=== PATIENT | female | born 1960 | race Caucasian/White ===

== ENCOUNTER 2020-06-03 00:38 | Outpatient (CLI) | payer OTHER, SELFPAY ==
[2020-06-03 19:16] LABS: SARS-CoV-2 RNA PCR Negative
== END 2020-06-03 00:39 | disposition home or self-care (01) ==
LOC: ANHCOVIDDT 00:40
PROVIDERS: PCP Family Medicine; Visit Provider Orthopaedic Surgery
DX: Z01.818 Encounter for other preprocedural examination (principal); Z11.59 Encounter for screening for other viral diseases
CPT/HCPCS: 87635; C9803; U0003

== ENCOUNTER 2020-06-03 10:07 | Outpatient (CLI) | payer OTHER, SELFPAY ==
--- NOTE | 2020-06-03 10:42 | ECG_ITS ---
Measurements Intervals [place] Rate: 60 P: 43 OK: 140 QRS: 35 QRSD: 98 T: 50 QT: 410 QTc: 410 Interpretive Statements SINUS RHYTHM NONSPECIFIC T-WAVE ABNORMALITY- ANTERIOR LEADS BASELINE ARTIFACT- I, III, AVL BORDERLINE ECG Electronically Signed On 06-03-2020 11:41:27 CDT by Frank Antonio D.O.
[2020-06-03 10:43] LABS: Blood Urea Nitrogen 18 mg/dL (7-17); Calcium 9.5 mg/dL (8.4-10.2); Carbon Dioxide 27 mmol/L (22-30); Chloride 102 mmol/L (98-107); Estimated Glomerular Filt Rate > 60; Glucose 164 mg/dL (65-105); Potassium 4.1 mmol/L (3.4-5.0); Sodium 138 mmol/L (137-145)
== END 2020-06-03 10:08 | disposition home or self-care (01) ==
PROVIDERS: PCP Family Medicine; Visit Provider Anesthesiology
DX: Z01.818 Encounter for other preprocedural examination (principal); E11.9 Type 2 diabetes mellitus without complications
CPT/HCPCS: 36415; 80048; 93005

== ENCOUNTER 2020-06-04 02:27 | Day surgery (SDC) | payer OTHER, SELFPAY ==
[2020-06-02 17:01] VITALS: BMI 32.0
[2020-06-04] VITALS (10 sets, daily range): BP systolic 126–142; BP diastolic 61–93; PULSE 55–73; RESP 10–20; TEMP 36.1–36.3; O2SAT 94–100
--- NOTE | ~2020-06-04 | XR_ITS ---
EXAMINATION: XR surgery orthopedic DATE: 06/04/2020 10:35 INDICATION: ORIF left wrist fracture TECHNIQUE: 6 fluoroscopic spot images of the left wrist were obtained during procedure performed by Luca Dunham. Radiologist was not present for the imaging or procedure. The amount of fluoroscopy ti me used during this procedure was 1.3 minutes. COMPARISON: None. FINDINGS: Images demonstrate open reduction and internal fixation with volar plate and screw fixation of a comm inuted intra-articular fracture of the distal left radius. Alignment appears near-anatomic with 4 deg trevor volar tilt and no significant fracture gap or incongruity of the distal articular surface. Ulnar styloid avulsion fracture which remains unfixed with mild distal/ulnar displacement and radial angul ation. Normal alignment and the carpus with mild osteoarthritis at the triscaphe and first carpal met acarpal joints. IMPRESSION: 1. Near-anatomic alignment post ORIF of a comminuted intra-articular distal left radial fracture. 2. Mild displacement and angulation of the ulnar styloid avulsion fracture which remains unfixed. Reviewed, dictated and finalized at location A. IMPRESSION: 1. Near-anatomic alignment post ORIF of a comminuted intra-articular distal lef t radial fracture. 2. Mild displacement and angulation of the ulnar styloid avulsion fracture whic h remains unfixed.
[2020-06-04] MEDS: LACTATED RINGERS 1,000 ML 30 ML IV CONT ×2 (07:43→10:38)
[2020-06-04 07:49] LABS: Glucose Point of Care 137 (65-105)
--- NOTE | 2020-06-04 08:02 | WPDANESEPPF ---
Anes - Initial Pre Proc Eval Procedure: Operation Date: 06/04/20 09:00 Proposed Procedures p Open Reduction Internal Fixation Left Distal Radius - Eddie Dunham MD Date/Time: 06/04/20 08:02 Surgeon: Eddie Dunham MD Pre Op Diagnosis: left distal radius fx Patient Data Age: 60 Gender: F Height: 5 ft 3 in Weight: 82.9 kg Last Vital Signs Temp 36.3 C L 06/04/20 07:55 Pulse 55 L 06/04/20 07:55 BP 139/75 06/04/20 07:55 Pulse Ox 96 06/04/20 07:55 Allergies Allergy/AdvReac Type Severity Reaction Status Date / Time No Known Allergies Allergy Verified 06/03/20 08:54 Home Medications Medication Instructions Recorded Confirmed Type cholecalciferol (vitamin D3) 125 5,000 unit PO DAILY 10/26/19 06/02/20 History mcg (5,000 unit) tablet meloxicam 15 mg tablet 15 mg PO DAILY 10/26/19 06/02/20 History gabapentin 300 mg capsule 300 mg PO BID 10/29/19 06/04/20 History atorvastatin 10 mg tablet 10 mg PO DAILY #90 tablet 04/30/20 06/02/20 Rx clonazepam 1 mg PO DAILY 06/02/20 06/02/20 History hydrocodone 5 mg-acetaminophen 325 1 tablet PO Q6H PRN #20 tablet 06/02/20 06/04/20 Rx mg tablet metformin [Glucophage XR] 1,000 mg PO BID 06/02/20 06/02/20 History trazodone 100 mg PO HS 06/02/20 06/02/20 History Laboratory Tests 06/04/20 07:46 POC Capillary Glucose 137 mg/dl H mg/dl (65-105) Patient hx anesthesia problems: post op nausea/vomiting Family hx anesthesia problems: none PMFSH Past Medical History Medical History (Updated 06/04/20 @ 08:03 by Aubrey Bruce MD) Cervical vertebral fusion Depression Dermatofibroma Diverticulosis of small intestine Eczema Hypertension Internal hemorrhoids with other complication CRISTEL (obstructive sleep apnea) Rectocele Transient ischemic attack Varicella (~1974) Surgical History Surgical History History of appendectomy History of tubal ligation (~1992) Hx of cholecystectomy (~2001) Status post cervical spinal fusion Social History Social History Smoking status: Never smoker Alcohol intake: current Living arrangements: with family Spiritual care concerns: No Anes - Eval Final PreProcedure Day of Procedure 06/04/20 08:02 Patient weight: obese Heart: regular rate and rhythm Lungs: clear to auscultation Airway: Mallampati scale class II Neurological: alert and oriented Last oral intake: >/= 8 hours ASA classification: III Emergent: no Anesthetic plan: proceed Anesthesia type and monitoring: general LMA and standard monitoring Informed Consent: The patient's anesthetic plan and its attendant risks and benefits were discussed with the patient/family/POA. Questions were solicited and answers provided to the satisfaction of the patient/family/POA.
[2020-06-04] MEDS: SCOPOLAMINE 1.5 MG PATCH TRANSDERM (08:08)
--- NOTE | 2020-06-04 08:37 | WPDHPUPDATE1 ---
History and Physical Update Update Date/Time: 06/04/20 08:37 History and Physical has been reviewed, including an updated exam of the patient. There are NO changes in the patient's condition. Risks, benefits, and alternatives have been discussed and questions answered. Patient agrees to proceed with procedure.
[2020-06-04] MEDS: ceFAZolin 2 GM/D5W 50 ML 2 GM/50 ML BAG IVPB (08:52)
[2020-06-04] MEDS: BUPIVACAINE/EPINEPHRINE 0.5% 30 ML VIAL INFILTRATE (09:23)
--- NOTE | 2020-06-04 11:00 | PM.PROC ---
Procedure Note - Detailed Date of procedure: 06/04/20 Pre-op diagnosis: left distal radius fx Post-op diagnosis: same Procedure performed: ORIF distal radius fracture with volar plate. Description of procedure: Comminuted fracture with an intra-articular fracture line and significant metaphyseal comminution. The slightly longer plate was utilized. Fixation of two intraarticular fragments. (23804) Implants: [employer] volar plate, narrow, long. Anesthesia: GETA Surgeon: Eddie Dunham MD Estimated blood loss (mL): 20 Tourniquet time (min): 67 Complications: No immediate complications Condition: stable Disposition: PACU Findings: Operative details: Preoperative antibiotics were given. A general anesthetic was administered. The hand was prepped and draped in the usual sterile fashion with a well-padded tourniquet. The limb was exsanguinated and the tourniquet inflated to 250 millimeters of mercury. A longitudinal incision was created over the flexor carpi radialis tendon. Dissection was brought down through the sheath. The pronator quadratus was identified and released off of the radius. The fracture was carefully exposed and cleared of debris. Reduction was obtained with traction and manipulation. There was significant comminution in the metaphyseal area. A large radial fragment was reduced anatomically. There was a fracture line into the joint which was stabilized with a pin. Fluoroscopy was used to confirm anatomic reduction. The volar plate was placed on the radius and the position was confirmed. Provisional pins were placed Through the radial styloid. The 1st pin controlled the articular reduction. The 2nd pin went across into the metaphysis.. The dynamic cortical screw was applied. The plate was fine tuned and fluoroscopy was use to confirm that the joint would not be violated. Subsequent distal pins and screws were placed, followed by the proximal row. The wound was irrigated and closed. 2-0 Vicryl suture was used to reapproximate the pronator quadratus. The tourniquet was released and meticulous hemostasis was confirmed. The skin was closed with 3-0 Monocryl suture and a running 4-0 Monocryl suture. Steri-Strips were applied on the skin. A sterile bulky dressing with a volar splint was applied.
[2020-06-04 11:04] LABS: Glucose Point of Care 127 (65-105)
== END 2020-06-04 13:15 | disposition home or self-care (01) ==
PROVIDERS: PCP Family Medicine; Visit Provider Orthopaedic Surgery
PROC: (CPT 25575; principal; 2020-06-04 09:00)
DX: S52.572A Other intraarticular fracture of lower end of left radius, initial encounter for closed fracture (principal); W18.39XA Other fall on same level, initial encounter; I10 Essential (primary) hypertension; G47.33 Obstructive sleep apnea (adult) (pediatric); F32.9 Major depressive disorder, single episode, unspecified; Z86.73 Personal history of transient ischemic attack (TIA), and cerebral infarction without residual deficits; Z79.84 Long term (current) use of oral hypoglycemic drugs; Z98.1 Arthrodesis status; E66.9 Obesity, unspecified; Z68.32 Body mass index [BMI] 32.0-32.9, adult
CPT/HCPCS: 25608; 36415; 80048; 87635; 93005; A9270; C9803; J0690; J1100; J2250; J2405; J2704; J3010; J7120; U0003

== ENCOUNTER 2020-07-02 09:07 | Outpatient (CLI) | payer OTHER, SELFPAY ==
--- NOTE | ~2020-07-02 | MM_ITS ---
EXAMINATION: MM screening [facility] BI w mike HISTORY: Screening TECHNIQUE: Craniocaudal and mediolateral oblique 3-D tomosynthesis images were obtained and synthetic 2-D images were generated. CAD analysis was submitted and interpreted. COMPARISON: Comparison to multiple prior studies sequentially, with oldest reviewed study dated 10/28. BREAST PARENCHYMAL COMPOSITION: There are scattered areas of fibroglandular density. FINDINGS: There is no evidence of suspicious mass, calcification, or architectural distortion to sugg est malignancy in either breast. There has been no suspicious interval change. IMPRESSION: 1. No mammographic evidence of malignancy. 2. Recommend routine screening mammography in one year. BI-RADS Category 1: Negative2 Reviewed, dictated and finalized at location A.
--- NOTE | ~2020-07-02 | US_ITS ---
EXAMINATION: US thyroid DATE: 07/02/2020 10:56 INDICATION: Nontoxic single thyroid nodule TECHNIQUE: Multiple ultrasound images of the thyroid were obtained. COMPARISON: None. FINDINGS: The right thyroid lobe measures 4.3 x 1.2 x 1.1 cm. The left thyroid lobe measures 4.4 x 1.3 x 1.4 c m. There are couple small hypoechoic wider than tall nodules with smooth margins and without echogen ic foci in the right thyroid measuring 4 mm and 2-3 mm in maximal dimensions (TI-RADS 4, moderately s uspicious , FNA if >=1.5 cm, annual followup is >1 cm). There are several small lesions in the left t hyroid the largest 3 measuring between 2.5-5 mm in maximal diameter appear anechoic cystic with perip heral echogenic foci consistent with inspissated colloid in colloid cysts. There are couple additiona l tiny hypoechoic lesions which are indeterminate whether solid versus cystic. There is mildly hetero geneous echogenicity and mildly coarsened echotexture throughout the thyroid. IMPRESSION: 1. Multinodular goiter with multiple subcentimeter nodules none meeting consensus criteria for biopsy or follow-up. Reviewed, dictated and finalized at location A. IMPRESSION: 1. Multinodular goiter with multiple subcentimeter nodules none meeting consens us criteria for biopsy or follow-up.
== END 2020-07-02 09:08 | disposition home or self-care (01) ==
PROVIDERS: PCP Family Medicine; Visit Provider Family Medicine
DX: Z12.31 Encounter for screening mammogram for malignant neoplasm of breast (principal); E04.2 Nontoxic multinodular goiter
CPT/HCPCS: 76536; 77063; 77067

== ENCOUNTER 2020-12-15 08:27 | Outpatient (CLI) | payer OTHER, SELFPAY ==
--- NOTE | 2020-12-15 08:33 | EST_ITS ---
Patient Info Name: Spring Bishop Age: 60 years : 1960 Gender: Female Ht: 63 in Wt: 170 lbs BSA: 1.88 m2 Technical Quality: Good Exam Date: 12/15/2020 9:09 AM Exam Location: [facility] Pulmonary Patient Status: Outpatient Admit Date: 12/15/2020 Staff Ordering Physician: Jovanny Higgins MD Housekeeping Aid: Niurka Tatum RDCS Attending Provider: ROSHNI BENITEZ DO Referring Physician: Gisela COMBS; Exercise Technologist: Yi Westbrook RDCS Exercise Physician: Roshni Benitez DO Exam Type: CA stress echo Study Info Indications R06.00 - Dyspnea, unspecified Treadmill exercise stress echocardiogram is performed. Summary 1. 1. Negative Piyush exercise stress test for ischemic ST changes by ECG criteria. 2. 2. Good functional capacity, achieving 10 METs of workload. 3. 3. Appropriate HR response to exercise. 4. 4. Appropriate HR recovery at 1 minute post exercise. 5. 5. Negative stress echocardiogram for ischemia by wall motion analysis. 6. 6. Patient informed of the above results. Stress Echo Findings Left Ventricle Appropriate increase in LV endocardial thickening with systole. Appropriate augmentation of contractility with systole. No obvious wall motion abnormality. Left Ventricle Normal LV systolic function, no wall motion abnormality. Protocol: Piyush Stress ECG Details Stage: REST Duration (min): 11 min : 20 sec Speed (mph): 0.0 Grade (%): 0 HR (bpm): 63 SBP (mmHg): 122 DBP (mmHg): 80 METS: --- Stage: REST Duration (min): 25 min : 50 sec Speed (mph): 0.0 Grade (%): 0 HR (bpm): 67 SBP (mmHg): 122 DBP (mmHg): 80 METS: --- Stage: STAGE 1 Duration (min): 1 min : 0 sec Speed (mph): 1.7 Grade (%): 10 HR (bpm): 84 SBP (mmHg): 122 DBP (mmHg): 80 METS: --- Stage: STAGE 1 Duration (min): 2 min : 0 sec Speed (mph): 1.7 Grade (%): 10 HR (bpm): 103 SBP (mmHg): 122 DBP (mmHg): 80 METS: --- Stage: STAGE 1 Duration (min): 3 min : 0 sec Speed (mph): 1.7 Grade (%): 10 HR (bpm): 115 SBP (mmHg): 117 DBP (mmHg): 97 METS: --- Stage: STAGE 2 Duration (min): 1 min : 0 sec Speed (mph): 2.5 Grade (%): 12 HR (bpm): 116 SBP (mmHg): 117 DBP (mmHg): 97 METS: --- Stage: STAGE 2 Duration (min): 2 min : 0 sec Speed (mph): 2.5 Grade (%): 12 HR (bpm): 115 SBP (mmHg): 172 DBP (mmHg): 115 METS: --- Stage: STAGE 2 Duration (min): 3 min : 0 sec Speed (mph): 2.5 Grade (%): 12 HR (bpm): 115 SBP (mmHg): 172 DBP (mmHg): 115 METS: --- Stage: STAGE 3 Duration (min): 1 min : 0 sec Speed (mph): 3.4 Grade (%): 14 HR (bpm): 128 SBP (mmHg): 143 DBP (mmHg): 91 METS: --- Stage: STAGE 3 Duration (min): 1 min : 49 sec Speed (mph): 0.0 Grade (%): 0 HR (bpm): 137 SBP (mmHg): 143 DBP (mmHg): 91 METS: --- Stage: RECOVERY Duration (min): 0 min :
== END 2020-12-15 08:28 | disposition home or self-care (01) ==
PROVIDERS: PCP Family Medicine; Visit Provider Family Medicine
DX: R06.00 Dyspnea, unspecified (principal)
CPT/HCPCS: 93351

== ENCOUNTER 2021-06-24 00:44 | Day surgery (SDC) | payer OTHER, SELFPAY ==
[2021-06-19 09:45] VITALS: BMI 27.2
[2021-06-24 12:16] VITALS: BMI 27.2
--- NOTE | 2021-06-24 12:30 | SUR.PREOP ---
1230- Patient notified procedure start time may be delayed. Patient and spouse, Vinod verbalized understanding.
[2021-06-24] MEDS: KETOROLAC 15 MG/ML VIAL (*BKC) IV PUSH (12:38)
[2021-06-24] MEDS: ACETAMINOPHEN 500 MG TABLET 1000 MG PO (12:39)
[2021-06-24 12:58] LABS: Glucose Point of Care 114 mg/dl (65-105)
--- NOTE | 2021-06-24 14:07 | WPDANESEPPF ---
Anes - Initial Pre Proc Eval Procedure: Operation Date: 06/24/21 14:00 Proposed Procedures p Rectal Exam Under Anesthesia, - Neil Lindsey DO s Transanal Hemorrhoid Dearterialization, Possible Internal Sphincterotomy - Neil Lindsey DO Date/Time: 06/24/21 14:07 Surgeon: Neil Lindsey DO Pre Op Diagnosis: grade 2 internal hemorrhoids, anal fissure Patient Data Age: 61 Gender: F Height: 1.6 m Weight: 69.85 kg Allergies Allergy/AdvReac Type Severity Reaction Status Date / Time No Known Allergies Allergy Verified 06/24/21 12:22 Home Medications Medication Instructions Recorded Confirmed Type zinc 50 mg tablet 50 mg PO DAILY 09/02/20 06/24/21 History cholecalciferol (vitamin D3) 125 5,000 unit PO BID tablet 10/30/20 06/24/21 History mcg (5,000 unit) tablet chlorthalidone 25 mg tablet 25 mg PO DAILY #90 tablet 03/04/21 06/19/21 Rx flash glucose scanning reader #1 ea 03/04/21 06/05/21 Rx flash glucose sensor #13 ea 03/04/21 06/05/21 Rx trazodone 100 mg tablet See Rx Instructions .ROUTE 03/09/21 06/19/21 Rx .COMPLEX #90 tablet sertraline 100 mg tablet See Rx Instructions .ROUTE 03/30/21 06/19/21 Rx .COMPLEX #90 tablet atorvastatin 10 mg tablet See Rx Instructions .ROUTE 04/28/21 06/19/21 Rx .COMPLEX #90 tablet metformin 500 mg tablet 500 mg PO BID 05/18/21 06/19/21 History clonazepam 1 mg PO HS 06/19/21 06/19/21 History Laboratory Tests 06/24/21 12:49 POC Capillary Glucose 114 mg/dl H mg/dl (65-105) Patient hx anesthesia problems: none Family hx anesthesia problems: none PMFSH Past Medical History Medical History Adjustment disorder with anxious mood Cervical vertebral fusion Depression Dermatofibroma Diverticulosis of small intestine Eczema Hypertension Internal hemorrhoids with other complication Labile hypertension Mixed hyperlipidemia Obesity CRISTEL (obstructive sleep apnea) Rectocele Transient ischemic attack Type 2 diabetes mellitus with diabetic dermatitis Varicella (~1974) Surgical History Surgical History H/O wrist surgery History of appendectomy History of tubal ligation (~1992) Hx of cholecystectomy (~2001) Status post cervical spinal fusion Family History Family History Father , age 78 Heart disease Hypertension Mother Diabetes mellitus Hypertension Social History Social History Smoking status: Never smoker Second hand tobacco smoke exposure: No Alcohol intake: current Drinks per week: 3 Alcohol use details: socially; selzers Substance use: never Substance use type: does not use Living arrangements: with family 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 Questions were solicited and answers provided to the satisfaction of the patient/family/POA.
--- NOTE | 2021-06-24 15:00 | WPDHPUPDATE1 ---
History and Physical Update Update Date/Time: 06/24/21 15:00 History and Physical has been reviewed, including an updated exam of the patient. There are NO changes in the patient's condition. Risks, benefits, and alternatives have been discussed and questions answered. Patient agrees to proceed with procedure.
[2021-06-24] MEDS: LACTATED RINGERS 1,000 ML 30 ML IV CONT (15:01)
[2021-06-24] MEDS: ceFAZolin 2 GM/D5W 50 ML 2 GM/50 ML BAG IVPB (15:26)
[2021-06-24] MEDS: BUPIVACAINE/EPINEPHRINE 0.5% 30 ML VIAL INFILTRATE (16:08)
--- NOTE | 2021-06-24 16:31 | W.PM.PROC2 ---
Procedure Note - Detailed Date of Procedure 06/24/21 Pre-op Diagnosis grade 2 internal hemorrhoids, anal fissure Post-op Diagnosis other (Grade II internal hemorrhoids, anal fissure, thrombosed external hemorrhoid) Procedure Performed 1. Multiple hemorrhoid ligation (Transanal hemorrhoid dearterialization procedure) 2. Lateral internal sphincterotomy 3. Excision of thrombosed external hemorrhoid Surgeon Neil Lindsey, DO Anesthesia general and local ( 0.5% bupivacaine with epinephrine) Indications This is a 61-year-old woman who presents with bleeding internal hemorrhoids as well as rectal pain. She was found to have grade 2 internal hemorrhoids and an anal fissure. She was treated for the anal fissure with nifedipine ointment but was not having any significant success with this. Now she presents for rectal exam under anesthesia, transanal hemorrhoid de arterialization procedure, and possible lateral internal sphincterotomy. Findings Rectal exam under anesthesia was performed. Patient was found to have a thrombosed external hemorrhoid in the right lateral location on initial examination. 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 The external hemorrhoid was excised in the right lateral location, and since this incision was right at the lateral anal verge, I chose to perform the internal sphincterotomy on this side. The thrombosed external hemorrhoid was sent to the lab for pathology. THD procedure was then also performed. The pulsatile vessel was difficult to identify in the 1 o'clock location, but the 3, 5, 7, 9, and 11 o'clock positions were all identified and ligation performed with 2 0 Vicryl [id number] sutures. Description of Procedure Procedure as well as risks, benefits, and alternatives were discussed with the patient. Written consent was obtained and placed in chart prior to procedure. Patient was brought back to surgical suite. She was placed supine hospital stretcher. she was then intubated by the Anesthesia Department. she was then repositioned into prone raffy-knife position and her buttocks were taped apart on each side. her perirectal area was prepped and draped in sterile fashion using Betadine prep. Time-out was done to confirm patient and procedure. Digital rectal exam was initially performed. A Pipe-Bravo anoscope was then inserted in the anorectal canal was carefully inspected. Prolapsing internal hemorrhoids were identified, and there also appeared to be a thrombosed external hemorrhoid in the right lateral location and an anterior midline anal fissure. 0.5% bupivacaine with epinephrine was infiltrated locally around the perianal skin. An elliptical incision was made around the thrombosed external hemorrhoid using a 15 blade scalpel. The thrombosis was sharply excised completely using the 15 blade scalpel. It was sent to the lab for pathology. I then identify the intersphincteric groove. A curved hemostat was used to isolate some of the internal sphincter muscle fibers. The sphincterotomy was then performed in the right lateral location using electrocautery. This appeared to relax the sphincter and I up to allow healing of the anal fissure. The anal derm and anal mucosa was then reapproximated using 3 0 chromic simple interrupted sutures. The D Doppler anoscope was then inserted. The pulsatile hemorrhoidal vessel was initially identified in the 3 o'clock location. A 2 0 Vicryl [id number] suture was placed at this location and the suture was tied down to ligate the vessel. This was then repeated in the 5, 7, 9, and 11 o'clock positions. All Doppler signals were easily identified in each location except for the 1 o'clock location. After completing this portion of the procedure, I then examined the anoderm and anal mucosa for any persistent prolapsing tissue. 0.5% bupivacaine with epinephrine was infiltrated locally around the anus. The patient was then awakened from anesthesia, extu
[2021-06-24 16:40] VITALS: BP 128/82; PULSE 61; RESP 18; TEMP 36.2; O2SAT 100
[2021-06-24 16:54] LABS: Glucose Point of Care 114 mg/dl (65-105)
[2021-06-24 16:55] VITALS: BP 115/63; PULSE 64; RESP 16; O2SAT 97
[2021-06-24] MEDS: fentaNYL CITRATE INJ (*CRX) 100 MCG/2 ML VIAL 25 MCG IV PUSH ×4 (17:00→17:20)
[2021-06-24 17:10] VITALS: BP 117/67; PULSE 58; RESP 12; O2SAT 96
[2021-06-24 17:25] VITALS: BP 114/64; PULSE 57; RESP 14; O2SAT 95
[2021-06-24 17:46] VITALS: BP 132/82; PULSE 58; RESP 16
[2021-06-24 18:16] VITALS: BP 135/59; PULSE 53; RESP 18
== END 2021-06-24 18:53 | disposition home or self-care (01) ==
PROVIDERS: PCP Family Medicine; Visit Provider Surgery
PROC: (CPT 46948; principal; 2021-06-24 14:00)
PROC: (CPT 46948; 2021-06-24 14:00)
DX: K64.5 Perianal venous thrombosis (principal); K64.1 Second degree hemorrhoids; K60.2 Anal fissure, unspecified; I10 Essential (primary) hypertension; E11.620 Type 2 diabetes mellitus with diabetic dermatitis; E78.2 Mixed hyperlipidemia; G47.33 Obstructive sleep apnea (adult) (pediatric); F43.22 Adjustment disorder with anxiety; Z98.1 Arthrodesis status; E66.9 Obesity, unspecified; Z68.27 Body mass index [BMI] 27.0-27.9, adult; Z86.73 Personal history of transient ischemic attack (TIA), and cerebral infarction without residual deficits; Z79.84 Long term (current) use of oral hypoglycemic drugs
CPT/HCPCS: 46948; 46320; 82948; 88304; A9270; C9290; J0690; J1100; J1885; J2250; J2405; J2704; J2710; J3010; J7120

== ENCOUNTER → 2021-07-31 03:42 | Outpatient (CLI) | payer OTHER, SELFPAY ==
[2021-07-31 18:14] LABS: SARS-CoV-2 RNA PCR Negative
== END ==
PROVIDERS: PCP Family Medicine; Visit Provider Family Medicine
DX: J02.9 Acute pharyngitis, unspecified (principal); R06.02 Shortness of breath; Z20.822 Contact with and (suspected) exposure to COVID-19
CPT/HCPCS: C9803; U0003; U0005

== ENCOUNTER 2021-10-05 01:06 | Day surgery (SDC) | payer OTHER, SELFPAY ==
[2021-09-24 09:37] VITALS: BMI 25.2
--- NOTE | 2021-10-02 16:04 | PM.HPGS ---
History of Present Illness History of Present Illness Consent: Risks, benefits, and alternatives have been discussed and questions answered. Patient agrees to proceed with procedure. Chief complaint: neoplasm screening Narrative: Spring Bishop is a 61 year old female referred for colon cancer screening. Her last colonoscopy was 11 years ago Review of Systems Review of Systems: All systems reviewed & are unremarkable except as noted in HPI and below PMFSH Past Medical History Medical History Adjustment disorder with anxious mood Cervical vertebral fusion Depression Dermatofibroma Diverticulosis of small intestine Eczema Hypertension Internal hemorrhoids with other complication Labile hypertension Mixed hyperlipidemia Obesity CRISTEL (obstructive sleep apnea) Rectocele Transient ischemic attack Type 2 diabetes mellitus with diabetic dermatitis Varicella (~1974) Surgical History Surgical History H/O hemorrhoidectomy 06/24/21 . Multiple hemorrhoid ligation (Transanal hemorrhoid dearterialization procedure) 2. Lateral internal sphincterotomy 3. 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 Spiritual care concerns: No Meds Home Medications and Allergies Home Medications Medication Instructions Recorded Confirmed Type zinc 50 mg tablet 50 mg PO DAILY 09/02/20 09/24/21 History cholecalciferol (vitamin D3) 125 5,000 unit PO BID tablet 10/30/20 09/24/21 History mcg (5,000 unit) tablet flash glucose scanning reader #1 ea 03/04/21 07/09/21 Rx flash glucose sensor #13 ea 03/04/21 07/09/21 Rx metformin 500 mg tablet 500 mg PO BID 05/18/21 09/24/21 History chlorthalidone 25 mg tablet 25 mg PO DAILY #90 tablet 07/30/21 09/24/21 Rx clonazepam 1 mg tablet 1 mg PO HS #90 tablet 08/05/21 09/24/21 Rx atorvastatin 10 mg PO HS 09/24/21 09/24/21 History sertraline 100 mg PO HS 09/24/21 09/24/21 History trazodone 100 mg PO HS 09/24/21 09/24/21 History Allergies Allergy/AdvReac Type Severity Reaction Status Date / Time No Known Allergies Allergy Verified 10/05/21 10:21 Exam Resp: Auscultation: clear to auscultation bilaterally Cardio: Rate: regular rate Rhythm: regular rhythm GI: GI Palp: Yes Soft to palpation and No Tenderness to palpation present (GI) Assessment and Plan Assessment and plan (1) Colon cancer screening: Code(s): Z12.11 - Encounter for screening for malignant neoplasm of colon Status: Acute Assessment and Plan: Colonoscopy with possible biopsy or polypectomy or cautery or injection of substances.
[2021-10-05 10:24] VITALS: BP 126/64; PULSE 58; RESP 20; TEMP 36; O2SAT 97; BMI 24.7
[2021-10-05] MEDS: LACTATED RINGERS 1,000 ML 150 ML IV CONT (10:43)
[2021-10-05 10:46] LABS: Glucose Point of Care 115 mg/dl (65-105)
--- NOTE | 2021-10-05 10:47 | WPDANESEPPF ---
Anes - Initial Pre Proc Eval Procedure: Operation Date: 10/05/21 11:00 Proposed Procedures p Screening Colonoscopy - Feliciano Cordon MD Date/Time: 10/05/21 10:47 Surgeon: Feliciano Cordon MD Pre Op Diagnosis: neoplasm screening Patient Data Age: 61 Gender: F Height: 1.6 m Weight: 63.2 kg Last Vital Signs Temp 36.0 C L 10/05/21 10:24 Pulse 58 L 10/05/21 10:24 Resp 20 10/05/21 10:24 BP 126/64 10/05/21 10:24 Pulse Ox 97 10/05/21 10:24 Allergies Allergy/AdvReac Type Severity Reaction Status Date / Time No Known Allergies Allergy Verified 10/05/21 10:21 Home Medications Medication Instructions Recorded Confirmed Type zinc 50 mg tablet 50 mg PO DAILY 09/02/20 09/24/21 History cholecalciferol (vitamin D3) 125 5,000 unit PO BID tablet 10/30/20 09/24/21 History mcg (5,000 unit) tablet flash glucose scanning reader #1 ea 03/04/21 07/09/21 Rx flash glucose sensor #13 ea 03/04/21 07/09/21 Rx metformin 500 mg tablet 500 mg PO BID 05/18/21 09/24/21 History chlorthalidone 25 mg tablet 25 mg PO DAILY #90 tablet 07/30/21 09/24/21 Rx clonazepam 1 mg tablet 1 mg PO HS #90 tablet 08/05/21 09/24/21 Rx atorvastatin 10 mg PO HS 09/24/21 09/24/21 History sertraline 100 mg PO HS 09/24/21 09/24/21 History trazodone 100 mg PO HS 09/24/21 09/24/21 History Laboratory Tests 10/05/21 10:39 POC Capillary Glucose 115 mg/dl H mg/dl (65-105) Patient hx anesthesia problems: none Family hx anesthesia problems: none Results Review: All pre-operative results and documents have been reviewed as part of the pre-operative evaluation. [facility] Past Medical History Medical History Adjustment disorder with anxious mood Cervical vertebral fusion Depression Dermatofibroma Diverticulosis of small intestine Eczema Hypertension Internal hemorrhoids with other complication Labile hypertension Mixed hyperlipidemia Obesity CRISTEL (obstructive sleep apnea) Rectocele Transient ischemic attack Type 2 diabetes mellitus with diabetic dermatitis Varicella (~1974) Surgical History Surgical History H/O hemorrhoidectomy 06/24/21 . Multiple hemorrhoid ligation (Transanal hemorrhoid dearterialization procedure) 2. Lateral internal sphincterotomy 3. 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 Informed Consent: The patient's anesthetic plan and its attendant risks and benefits were discussed with the patient/family/POA. Questions were solicited and answers provided to the satisfaction of the patient/family/POA.
[2021-10-05 11:19] VITALS: BP 101/61; PULSE 52; RESP 21; O2SAT 100
[2021-10-05 11:29] VITALS: BP 118/74; PULSE 54; RESP 23; O2SAT 100
[2021-10-05 11:39] VITALS: BP 117/71; PULSE 53; RESP 19; O2SAT 100
== END 2021-10-05 11:44 | disposition home or self-care (01) ==
PROVIDERS: PCP Family Medicine; Visit Provider Internal Medicine Gastroenterology
PROC: 0DJD8ZZ Inspection of Lower Intestinal Tract, Via Natural or Artificial Opening Endoscopic (ICD-10-PCS; CPT 45378; principal; 2021-10-05 11:00)
DX: Z12.11 Encounter for screening for malignant neoplasm of colon (principal); K57.30 Diverticulosis of large intestine without perforation or abscess without bleeding; Z79.84 Long term (current) use of oral hypoglycemic drugs; Z98.1 Arthrodesis status; F32.9 Major depressive disorder, single episode, unspecified; I10 Essential (primary) hypertension; E78.2 Mixed hyperlipidemia; G47.33 Obstructive sleep apnea (adult) (pediatric); E11.620 Type 2 diabetes mellitus with diabetic dermatitis; Z86.73 Personal history of transient ischemic attack (TIA), and cerebral infarction without residual deficits
CPT/HCPCS: 45378; 82948; J2704; J7120

== ENCOUNTER 2022-02-10 15:44 | Outpatient (CLI) | payer OTHER, SELFPAY ==
--- NOTE | ~2022-02-10 | MM_ITS ---
EXAMINATION: MM screening donna BI w mike HISTORY: Screening mammogram, family history of breast cancer in her mother. TECHNIQUE: Craniocaudal and mediolateral oblique 3-D tomosynthesis images were obtained and synthetic 2-D images were generated. CAD analysis was submitted and interpreted. COMPARISON: 07/02/2020, 07/19/2018 BREAST PARENCHYMAL COMPOSITION: There are scattered areas of fibroglandular density. FINDINGS: There is no suspicious mass, calcification, or architectural distortion to suggest malignan cy in either breast. There has been no suspicious interval change. IMPRESSION: 1. No mammographic evidence of malignancy. 2. Recommend routine screening mammography in one year. BI-RADS Category 1: Negative Reviewed, dictated and finalized at location A.
== END 2022-02-10 15:45 | disposition home or self-care (01) ==
LOC: ANHIMG 15:45
PROVIDERS: PCP Family Medicine; Visit Provider Family Medicine
DX: Z12.31 Encounter for screening mammogram for malignant neoplasm of breast (principal)
CPT/HCPCS: 77063; 77067

== ENCOUNTER 2022-10-20 13:50 | Outpatient (CLI) | payer OTHER, SELFPAY ==
--- NOTE | 2022-10-20 14:06 | ECG_ITS ---
Measurements Intervals [place] Rate: 65 P: 48 CT: 128 QRS: 25 QRSD: 99 T: 18 QT: 319 QTc: 334 Interpretive Statements SINUS RHYTHM NONSPECIFIC ST-T WAVE ABNORMALITY- ANTEROLAT/INF LEADS BASELINE ARTIFACT- I, II, III, AVR, AVL, AVF, V1-V6 BORDERLINE ECG COMPARED TO ECG 06/03/2020 10:59:29 T-WAVE ABNORMALITY NOW PRESENT Electronically Signed On 10-20-2022 15:30:14 DIRECTOR OF HOME HEALTH SERVICES by Frank Antonio D.O.
== END 2022-10-20 13:51 | disposition home or self-care (01) ==
LOC: ANHSURGERY 14:00
PROVIDERS: PCP Family Medicine; Visit Provider Orthopaedic Surgery
DX: E78.2 Mixed hyperlipidemia (principal); Z01.818 Encounter for other preprocedural examination; R94.31 Abnormal electrocardiogram [ECG] [EKG]
CPT/HCPCS: 93005

== ENCOUNTER 2022-10-28 01:22 | Day surgery (SDC) | payer OTHER, SELFPAY ==
[2022-10-19 09:53] VITALS: BMI 28.3
--- NOTE | 2022-10-19 09:58 | PC.NURSE ---
Report to the Outpatient Waiting Room, entrance under the green pavilion located off [facility], at time 6:00 on date 10/28/22. Planned Procedure Time: 7:30. Time changes happen often and if your time is changed the preop area will call you the afternoon before. - You and your visitor will be asked to self-screen and do not enter if you have any COVID symptoms. - Only one visitor is requested with a max of two and NO children visitors are allowed at this time. - The patient visitor may be requested to leave or wait in car when not with patient due to distancing restrictions. - A mask is optional within the hospital. Patients may have clear liquids (water, carbonated beverages, clear teas, apple juice) until 3 hours prior to surgery (4:30) with a maximum of 20 ounces. - No food from midnight until time of surgery Take the following medications with a SIP of water the morning of surgery: SERTRALINE Medications to discontinue per physician: VITAMINS/SUPPLEMENTS Date to take last dose: 10/24/22 Please no make-up, nail tamazight, hairspray, perfume, deodorant, or body powder the day of surgery. No jewelry (including any body piercings) or valuables the day of surgery, leave them at home. Please take a shower or bath the night before, or the morning of, surgery with an antibacterial soap. Wear comfortable, loose fitting clothing. - Jewelry must be removed prior to entering the operating room. Rings and piercings that are not removed may be cut off. - The hospital will not accept responsibility for valuables. - Please leave all valuables, including medications, at home the day of surgery. If you are going home after surgery, a licensed shuttle truck driver must drive you home. - NO public transportation without another adult if you receive anesthesia. - We recommend that an adult stay with you for 24 hours following discharge. - We also recommend that you do not drive, make important decision, drink alcoholic beverages, or take any drugs that were not prescribed by your health care provider for at least 24 hours after your discharge time. Follow any additional instructions given to you from your surgeon. If you or anyone in your household have experienced Covid symptoms in the past week, please notify your surgeon or the nurse liaison at the phone number below for possible testing. Telephone instructions given to PT - ANI MARTIN and asked if any additional questions and then verbalized understanding. Patient advised to call surgeon office or pre surgery nurse liaison [phone] if any additional questions.
[2022-10-28] VITALS (9 sets, daily range): BP systolic 103–122; BP diastolic 50–72; PULSE 49–60; RESP 5–20; TEMP 36.2–36.3; O2SAT 96–100
--- NOTE | ~2022-10-28 | XR_ITS ---
XR surgery orthopedic DATE: 10/28/2022 08:31 INDICATION: Right hallux valgus correction TECHNIQUE: 3 spot C-arm images of the forefoot 9 seconds total fluoroscopy time 0.9413 cGycm2 total DAP COMPARISON: 06/15/2022 right foot FINDINGS: There is osteotomy at the distal shaft and head of the first metatarsal bone. There is osteotomy with staple at the proximal phalanx of the great toe. IMPRESSION: Status post bunionectomy Reviewed, dictated and finalized at Location A. Reviewed, dictated and finalized at location B. EL BANDER IMPRESSION: Status post bunionectomy
--- NOTE | 2022-10-28 06:32 | WPDANESEPPF ---
Anes - Initial Pre Proc Eval Procedure: Operation Date: 10/28/22 07:30 Proposed Procedures p Right Hallux Valgus Correction - Sanchez Carrero MD s First Metatarsal Osteotomy, Possible Phalangeal Osteotomy - Sanchez Carrero MD Date/Time: 10/28/22 06:32 Surgeon: Sanchez Carrero MD Pre Op Diagnosis: Rt Hallux Valgus Patient Data Age: 62 Gender: F Height: 1.57 m Weight: 70.31 kg Allergies Allergy/AdvReac Type Severity Reaction Status Date / Time No Known Allergies Allergy Verified 10/19/22 09:51 Home Medications Medication Instructions Recorded Confirmed Type zinc 50 mg tablet 50 mg PO DAILY 09/02/20 10/19/22 History cholecalciferol (vitamin D3) 125 5,000 unit PO BID 10/30/20 10/19/22 History mcg (5,000 unit) tablet flash glucose scanning reader #1 ea 03/04/21 10/19/22 Rx (FreeStyle Maria 2 [place]) flash glucose sensor (FreeStyle #13 ea 04/23/22 10/19/22 Rx Maria 2 Sensor kit) sertraline 100 mg tablet See Rx Instructions .Route 04/23/22 10/19/22 Rx .COMPLEX #90 tabs chlorthalidone 25 mg tablet 25 mg PO DAILY #90 tabs 04/28/22 10/19/22 Rx trazodone 100 mg tablet See Rx Instructions .Route 04/28/22 10/19/22 Rx .COMPLEX #90 tabs clonazepam 1 mg tablet 1 mg PO HS #10 tabs 08/06/22 10/19/22 Rx empagliflozin 10 mg tablet 10 mg PO DAILY #30 tabs 09/27/22 10/19/22 Rx (Jardiance) metformin 500 mg tablet 500 mg PO ONCE #180 tabs 09/27/22 10/19/22 Rx atorvastatin 10 mg tablet See Rx Instructions .Route 10/18/22 10/19/22 Rx .COMPLEX #90 tabs Patient hx anesthesia problems: none Family hx anesthesia problems: none Results Review: All pre-operative results and documents have been reviewed as part of the pre-operative evaluation. [facility] Past Medical History Medical History Adjustment disorder with anxious mood Anxiety Cervical vertebral fusion Depression Dermatofibroma Diverticulosis of small intestine Eczema Hallux valgus (acquired), right foot Hypertension Internal hemorrhoids with other complication Labile hypertension Mixed hyperlipidemia Obesity CRISTEL (obstructive sleep apnea) Rectocele Transient ischemic attack Trigger finger of left hand 3rd finger Type 2 diabetes mellitus with diabetic dermatitis Varicella (~1974) Vision changes Surgical History Surgical History H/O hemorrhoidectomy 06/24/21 . Multiple hemorrhoid ligation (Transanal hemorrhoid dearterialization procedure) 2. Lateral internal sphincterotomy 3. Excision of thrombosed external hemorrhoid H/O rectal sphincterotomy H/O wrist surgery [address] Dunham History of appendectomy History of bladder surgery Bladder lift 2001 History of tubal ligation (~1992) Hx of cholecystectomy (~2001) Status post cervical spinal fusion [address] 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
[2022-10-28] MEDS: LACTATED RINGERS 1,000 ML 30 ML IV CONT ×2 (06:40→09:08)
[2022-10-28] MEDS: ACETAMINOPHEN 500 MG TABLET 1000 MG PO (06:45)
[2022-10-28] MEDS: KETOROLAC 15 MG/ML VIAL (*BKC) IV PUSH (06:45)
[2022-10-28 06:47] LABS: Glucose Point of Care 136 mg/dl (65-105)
--- NOTE | 2022-10-28 07:01 | WPDHPUPDATE1 ---
History and Physical Update Update Date/Time: 10/28/22 07:01 History and Physical has been reviewed, including an updated exam of the patient. There are NO changes in the patient's condition. Risks, benefits, and alternatives have been discussed and questions answered. Patient agrees to proceed with procedure.
--- NOTE | 2022-10-28 07:08 | SUR.PREOP ---
PT STATES SHE HAS USED CRUTCHES BEFORE AND HAS A WALKER AT HOME TO USE.
[2022-10-28] MEDS: ceFAZolin 2 GM/D5W 50 ML 2 GM/50 ML BAG IVPB (07:25)
[2022-10-28] MEDS: BUPIVACAINE HCL 0.5% PF 30 ML VIAL 20 ML INFILTRATE (07:51)
--- NOTE | 2022-10-28 08:42 | W.PM.PROC2 ---
Procedure Note - Detailed Date of Procedure 10/28/22 Pre-op Diagnosis Rt Hallux Valgus Post-op Diagnosis Same Procedure Performed Right hallux valgus correction with double osteotomy Surgeon Sanchez Carrero MD [employer] 1st assistant manager of operations Anesthesia General Indications 62-year-old woman with right hallux valgus deformity problems with shoe wear and pain with activity. She has failed conservative treatment. She presents for operative treated Findings moderate hallux valgus deformity. Degenerative changes of the metatarsal head on medial and plantar aspect. Description of Procedure After informed consent was given, the operative extremity was marked in the preoperative holding area. The patient received intravenous antibiotics. The patient was brought to the operating room where they underwent a general anesthetic by the anesthesia team. The patient was positioned supine on the operating room table. A time-out was performed confirming the patient, site of the surgery, and the plan for surgery. The right lower extremity was then prepped and draped in the usual sterile surgical fashion using ChloraPrep skin solution. Foot and ankle were exsanguinated and a calf tourniquet was inflated to 225 mmHg pressure. A longitudinal incision was then made along the medial border of the 1st ray centered over the medial eminence with a #15 blade knife. The previous incision was utilized. Hemostasis was controlled with electric cautery. The dorsal and plantar sensory nerves were identified and retracted bluntly. A medial capsulotomy was then performed. This was reflected off the medial eminence. The joint was inspected for evaluation of degenerative changes. A lateral release was then performed through the joint with a #15 blade knife. The medial eminence was then resected with a sagittal saw in line with the medial border of the foot. Correction of the deformity was performed with a chevron-shaped osteotomy performed with sagittal saw from medial to lateral through the distal portion of the 1st metatarsal. The lateral portion of the bone cut was completed with an osteotome to protect the soft tissue. The capital fragment was then translated laterally and impacted on to the 1st metatarsal shaft. Lateral translation and impaction corrected both hallux valgus deformity and correction of the distal metatarsal articular angle. Temporary fixation was performed and alignment was verified with image intensification. Hallux valgus angle correction, intermetatarsal angle correction and distal metatarsal articular angle were verified. Fixation was achieved with 2.0 millimeter bioabsorbable pins. Two pins were utilized. Image intensification confirmed final alignment. Rotation was verified visually. The wound was then thoroughly irrigated with antibiotic solution. The capsule was repaired through a drill hole in the distal 1st metatarsal with 0 Vicryl interrupted suture. The dorsal limb of the capsule was repaired with 00 Vicryl interrupted suture. Subcutaneous tissue was repaired with 000 Monocryl interrupted suture and the skin approximated with 0000 nylon running suture. Local anesthetic with 0.5% Marcaine plain was injected in the soft tissue. Clinically and fluoroscopically there was still hallux valgus interphalangeus present. Proximal phalanx osteotomy was indicated. Medial incision made along the proximal phalanx with 15 blade knife. Hemostasis controlled electrocautery. Dissection down to the medial aspect of the proximal phalanx. Retractors placed. Sagittal saw used to make a medial closing wedge osteotomy transversely across the proximal phalanx. Image intensification confirmed placement of the osteotomy. Fixation was achieved with the Arthrex 10 millimeter x 9 millimeter staple. Good stability and fixation were noted. Image intensification confirmed final alignment of the osteotomy and placement of the hardware. Overall alignment of the 1st ray was verified.
[2022-10-28 08:48] LABS: Glucose Point of Care 139 mg/dl (65-105)
[2022-10-28] MEDS: fentaNYL CITRATE INJ (*CRX) 100 MCG/2 ML VIAL 25 MCG IV PUSH ×5 (08:51→09:28)
[2022-10-28] MEDS: oxyCODONE HCL (*CRX) 5 MG TAB IR PO (09:54)
== END 2022-10-28 10:42 | disposition home or self-care (01) ==
PROVIDERS: PCP Family Medicine; Visit Provider Orthopaedic Surgery
PROC: (CPT 28299; principal; 2022-10-28 07:30)
PROC: (CPT 28750; 2022-10-28 07:30)
DX: M20.11 Hallux valgus (acquired), right foot (principal); I10 Essential (primary) hypertension; E78.2 Mixed hyperlipidemia; G47.33 Obstructive sleep apnea (adult) (pediatric); E11.620 Type 2 diabetes mellitus with diabetic dermatitis; F32.A Depression, unspecified; F43.22 Adjustment disorder with anxiety; Z86.73 Personal history of transient ischemic attack (TIA), and cerebral infarction without residual deficits; Z79.84 Long term (current) use of oral hypoglycemic drugs; Z98.1 Arthrodesis status
CPT/HCPCS: 28299; 82948; 93005; 99199; A9270; C1713; J0690; J1100; J1885; J1940; J2250; J2405; J2704; J3010; J7120

== ENCOUNTER 2023-06-14 08:00 | Outpatient (CLI) | payer OTHER, SELFPAY ==
--- NOTE | ~2023-06-14 | MM_ITS ---
CORRECTED REPORT exam description change [facility] [place] 06/14/23 This report was recreated on 06/14/23. Original report was EXAMINATION: MM screening mammo BI w mike HISTORY: Screening TECHNIQUE: Craniocaudal and mediolateral oblique 3-D tomosynthesis images were obtained and synthetic 2-D images were generated. CAD analysis was submitted and interpreted. COMPARISON: Comparison to multiple prior studies sequentially, with oldest reviewed study dated 07/23/2016. BREAST PARENCHYMAL COMPOSITION: Breast composed of scattered areas of fibroglandular density FINDINGS: There is no evidence of suspicious mass, calcification, or architectural distortion to suggest malignancy in either breast. There has been no suspicious interval change. IMPRESSION: 1. No mammographic evidence of malignancy. 2. Recommend routine screening mammography in one year. BI-RADS Category 1: Negative Reviewed, dictated and finalized at location A. MTDD
--- NOTE | ~2023-06-14 | DEXA_ITS ---
Bone Density Report Name: ANI MARTIN Age: 63 Sex: Female Ethnicity: White Date of : 1960 Indication: postmenopausal; screening for osteoporosis; height loss; prior fracture; Referring Provider: NAEEM LUCAS Study: Bone densitometry was performed. Exam Date: June 14, 2023 Accession number: [id number] Bone Density: Region BMD T-score Z-score Classification AP Spine(L2, L3, L4) 1.182 0.9 2.6 Normal Femoral Neck (Left) 0.722 -1.1 0.3 Osteopenia Total Hip (Left) 0.873 -0.6 0.6 Normal Femoral Neck (Right) 0.650 -1.8 -0.4 Osteopenia Total Hip (Right) 0.815 -1.0 0.1 Normal Femoral Neck Mean 0.686 -1.5 0.0 Osteopenia Total Hip Mean 0.844 -0.8 0.3 Normal World Health Organization criteria for BMD impression classify patients as: Normal (T-score at or above -1.0), Osteopenia (T-score between -1.0 and -2.5), or Osteoporosis (T-score at or below -2.5). 10-year Fracture Risk(1): Major Osteoporotic Fracture 15% Hip Fracture 1.7% Reported Risk Factors: [place] (), Neck BMD=0.650, BMI=29.6, previous fracture (1) FRAX(R) Version 3.08. Fracture probability calculated for an untreated patient. Fracture probability may be lower if the patient has received treatment. Clinical Information Provided by Patient: Has had a low trauma fracture Has used the following medications: Vitamin D Patient maximum height was 63 Menopause Age: 50 No regular weight bearing exercise Onset of menses at age 12 Number of children 3 Impression: The patient has low bone mass, based on the Right Femoral Neck T-score. The patient has risk factors, including: previous fracture. Discussion: BONE DENSITY IS LOW AT ONE OR MORE SKELETAL SITES. This patient's lowest T-score is low at one or more skeletal sites. It meets the World Health Organization's (WHO) criteria for ?low bone mass? (T-score between -1.0 and -2.5). The patient's 10-year risk of fracture as calculated by FRAX is less than the threshold where pharmacological therapy is recommended by the National Osteoporosis Foundation (NOF). However, all treatment decisions require clinical judgment and consideration of individual patient factors, including patient preferences, comorbidities, previous drug use, risk factors not captured in the FRAX model (e.g., frailty, falls, vitamin D deficiency, increased bone turnover, interval significant decline in bone density) and possible under or overestimation of fracture risk by FRAX. The patient should follow a healthful lifestyle (good nutrition with adequate calcium and vitamin D, and appropriate weight-bearing exercise). Follow-Up: Consider repeating this study in 2 to 3 years to reassess this patient's status, or sooner if there is some new clinical indication. Reported by: Dr. Walker Ahn on 06/14/2023 8:50:00 AM.
== END 2023-06-14 08:01 | disposition home or self-care (01) ==
LOC: CHSIMG 08:02
PROVIDERS: PCP Family Medicine; Visit Provider Family Medicine
DX: Z12.31 Encounter for screening mammogram for malignant neoplasm of breast (principal); Z78.0 Asymptomatic menopausal state; M85.89 Other specified disorders of bone density and structure, multiple sites
CPT/HCPCS: 77063; 77067; 77080

== ENCOUNTER 2023-11-08 09:00 | Outpatient (RCR) | payer OTHER, SELFPAY ==
--- NOTE | 2023-10-25 14:35 | OPREHPOC ---
Outpatient Therapy Plan of Care This is a Multidisciplinary Plan of Care that may contain components documented by all disciplines (PT, OT, and ST.) PT Problem 1 PT Problem #1 Knowledge Deficit PT Goal 1 Goal 1. Patient will perform independent HEP 2. Patient will verbalize knowledge of adequate fiber intake Target Visit 5 PT Problem 2 PT Problem #2 Pain PT Goal 1 Goal 1. Pain with intercourse no higher than 2/10 Target Visit 5 PT Problem 3 PT Problem #3 Impaired Strength PT Goal 1 Goal 1. Improve pelvic floor strength to 4/5 to decrease urgency Target Visit 5 PT Problem 4 PT Problem #4 Impaired Functional ADLs PT Goal 1 Goal 1. Patient able to do all activities with an average of 4 BM per week 2. Patient able to hold stool at least 20 minutes to decrease any fecal incontinence Target Visit 5
--- NOTE | 2023-10-25 14:35 | PTOPEVAL1 ---
Assessment and note entered by Bridgette Haque DPT Evaluation Information Assessment Status Evaluation Subjective Information Pt reports a long history of constipation but it changed over the summer and was going days and days without a BM. When she does have a BM reports a lot of urgency, frequent bleeding. Has started taking metamucil. Previous hemorrhoid surgery a few years ago. Urinates more than 10 times a day, 2 times at night. Very infrequent urinary incontinence. Can hold urinary urge very short amounts of time as well. Denies pain with urination. With the metamucil is now having a BM every other day or so, can still be painful. Sometimes gets fecal incontinence if she waits too long. Has been getting pain with intercourse but states the pain feels like it is rectal. Highest pain 7/10 and lowest 0/10. Pt has had 3 vaginal deliveries, tearing with 1. No other SOCK DRIER history. Bladder lift in 1993 or 1994. Pt reports she has a lot of worry and stress about her fecal urgency when she is out in the community or traveling. Will wear pads at times. Usually eats eggs, romero, and apples for breakfast . Often skips lunch. Dinner usually meat and vegetables. Drinks 3-4 cups of coffee a morning and then switches to water. Alcohol a couple times a week. Will snack but not always every day. Patient goal: feel regulated, get rid of pain. Reported Pain Level Pain Score 0: Self Report Assessment PT Clinical Summary The patient is presenting to skilled therapy with a history of worsening constipation and fecal urgency. She demonstrates decreased hip and core strength, decreased pelvic floor strength and endurance and pelvic organ prolapse which are contributing to her symptoms. She will benefit from therapy to address her impairments in order to decrease constipation and urgency in order to return to full function. Plan of Care Interventions Electrical Stimulation,Hot Pack/Cold Pack,Manual Therapy,Neuro Re-education,Patient/Caregiver Education,Therapeutic Activities,Therapeutic Exercise PT Services Indicated Yes Treatment Frequency and 1 time a week for 4 weeks Duration These treatments will address the objective and functional deficits as d
--- NOTE | 2023-11-16 12:16 | PCPTNOTE ---
Patient called to cancel her last 2 appointments due to issues with knees following a fall. Wants to wait on pelvic floor therapy for the time being.
--- NOTE | 2024-01-10 12:46 | PTOPDC ---
Assessment and note entered by Bridgette Haque DPCarla Evaluation Information Assessment Status Discharge - Pt Not Present Subjective Information - Assessment PT Clinical Summary Patient has not attended therapy since 11/08/24. She was only able to attend 3 sessions before needing to address other health issues. She will be discharged and need a new script to resume therapy in the future. Plan of Care PT Services Indicated No
== END 2024-01-10 13:05 | disposition home or self-care (01) ==
LOC: ANHPT 09:00
PROVIDERS: PCP Family Medicine; Visit Provider Surgery
DX: K59.09 Other constipation (principal)
CPT/HCPCS: 97110; 97140; 97162

== ENCOUNTER 2024-11-23 10:25 | Outpatient (CLI) | payer OTHER, SELFPAY ==
[2024-11-23 12:29] LABS: Influenza A QL RT-PCR Negative (Negative); Influenza B QL RT-PCR Negative (Negative); RSV RNA, RT-PCR Negative (Negative); SARS-CoV-2 RNA PCR Negative (Negative)
== END 2024-11-23 10:26 | disposition home or self-care (01) ==
LOC: ANHGOSHLAB 10:26
PROVIDERS: PCP Family Medicine; Visit Provider Student in an Organized Health Care Education/Training Program
DX: R05.9 Cough, unspecified (principal); Z20.822 Contact with and (suspected) exposure to COVID-19
CPT/HCPCS: 87637

== ENCOUNTER 2025-01-10 07:28 | Day surgery (SDC) | payer OTHER, SELFPAY ==
[2024-12-24 11:28] VITALS: BMI 29.4
--- NOTE | 2025-01-10 06:56 | WPDHPUPDATE1 ---
History and Physical Update Update Date/Time: 01/10/25 06:56 Patient seen and examined in pre-operative holding area. No interval change in medical history or symptoms. Patient recalls previous discussion of benefits and alternatives to procedure. Continues to desire to proceed with right middle finger a1 maximo release. Reviewed procedure, post-op expectations and risks including but not limited to bleeding, infection, injury to tendon/nerve/vessel, decreased hand function, stiffness, RSD, no change or worsening of symptoms. I discussed the possible use of assistants and their participation in the case. Patient stated understanding and signed the consent form wishing to proceed.
--- NOTE | 2025-01-10 06:56 | W.PM.PROC2 ---
Procedure Note - Detailed Date of Procedure 01/10/25 Pre-op Diagnosis Right Middle Trigger Finger Post-op Diagnosis Same Procedure Performed right middle finger a1 maximo release Surgeon Yaneth Wilson MD Die Repairer Forging tramaine patino pa-c Anesthesia MAC Description of Procedure INFORMED CONSENT: The patient was seen and examined and marked in the pre-op area.? The patient signed the consent form. PROCEDURE IN DETAIL:The patient taken back to OR on the stretcher in supine position. Time out performed with anesthesia, surgeon and staff agreeing on patient's name site and surgery to be performed SCDs were placed on the lower extremities and inflated. A tourniquet was placed on {right} upper extremity and antibiotics given IV After anesthesia administered sedation I injected {4}cc 1%lido and 0.5% marcaine plain at the operative site The?{right upper extremity}?was prepped and draped in sterile fashion the??{right upper extremity} was? exsanguinated with Esmarch bandage and tourniquet inflated to 250mmHg I made a longitudinal incision over the right middle finger A1 maximo with a 15 blade scalpel through skin and dermis. Littler scissors were used to spread through subcutaneous tissue down to the A1 maximo. The A1 maximo was identified and initially incised with a 15 blade scalpel. Littler scissors were used to spread above and below it proximally and distally and complete transection entirely. Ragnell retractors were used withdrawal the FDS and FDP tendons for inspection. The tendons were free of masses and synovitis and gliding smoothly the sheath without triggering or crepitus. I irrigated with normal saline and closed with 4-0 chromic. A dressing of xeroform, 4x4, ariella, and an radha bandage was applied after the tourniquet was let down noting the hand was warm and well perfused. The patient was then awaken from anesthesia and transferred to the recovery room in stable condition.? Complications - none EBL- 0cc Disposition - home in stable conditions Tramaine Patino PA-C was essential for positioning, retraction, closure and dressing placement [facility] Billing Surgery - Charge Forward: Surgery Billing ([id number] for tramaine)
--- OUTSIDE RECORDS SUMMARY | 2025-01-10 08:22 | XMS_ITS | Clinical Summary ---
Author Organization [facility] Address [address] [place] [address] Care Team Providers Care Speed Reading Teacher Name Role Phone Unavailable Primary Care Provider Unavailabl e Social History Tobacco Use Types Packs/Day Years Used Date Smoking Tobacco: Never Assessed Comments Unknown Sex and Gender Information Value Date Recorded Sex Assigned at Not on file Legal Sex Female 11:49 AM FORGING PRESS SETTER UP Gender Identity Not on file Sexual Orientation Not on file Plan of Treatment Health Maintenance Due Date Last Done Comments Hepatitis C Virus (HCV) Screening 1960 Pap Smear 1981 Cervical Cancer Screening (CCS) 1990 HPV/Cotest 1990 Colonoscopy 2005 Colorectal Cancer Screening 2005 Cologuard 2010 Immunochemical Fecal Occult Blood 2010 Mammogram 2010 Pneumococcal Immunization (50+ years) (1 of 1 - PCV) 2010 Zoster Immunization (1 of 2) 2010 Influenza Immunization (#1) 07/29/202409/28, 08/31/2020, 09/05/2019, Additional history exists SARS-COV-2 Immunization ( season) 2024 09/22/2021, 02/07/2021, 01/10/2021 Respiratory Syncytial Virus (RSV) Immunization (Adult) (1 - 1-dose 75+ series) 2035 DTaP/Tdap/Td Immunization Discontinued 09/05/2019 TdaP Immunization Completed 09/05/2019 Hepatitis B Immunization Aged Out No longer eligible based on patient's age to complete this topic Meningococcal Immunization (ACWY) Aged Out No longer eligible based on patient's age to complete this topic Pneumococcal Immunization Combined Aged Out No longer eligible based on patient's age to complete this topic Rotavirus Immunization Aged Out No lo nger eligible based on patient's age to complete this topic
--- OUTSIDE RECORDS SUMMARY | 2025-01-10 08:22 | XMS_ITS | Clinical Summary ---
Author Organization [address] Address [address] [place] [id number] Care Team Providers Care Pill Machine Operator Name Role Phone Jovanny Higgins MD Primary Care Provider [phone] Shari Bird Unavailable [phone] Allergies No known active allergies Medications atorvastatin (LIPITOR) 10 mg tablet Take 1 tablet (10 mg total) by mouth daily 11/27/20 24 Active Dexcom G7 Gate Technician misc as directed 10/09/20 24 Active Dexcom G7 Sensor device as directed 10/08/20 24 Active chlorthalidone (HYGROTON) 25 mg tablet Take 1 tablet (25 mg total) by mouth daily 11/27/20 24 Active clonazePAM (KlonoPIN) 1 mg tablet Take 1 tablet (1 mg total) by mouth nightly 10/31/20 24 Active metFORMIN (GLUCOPHAGE) 500 mg tablet Take 1 tablet (500 mg total) by mouth 2 (two) times a day 11/15/20 24 Active Rybelsus 7 mg tablet Take 1 tablet (7 mg total) by mouth daily 11/27/20 24 Active sertraline (ZOLOFT) 100 mg tablet Take 1 tablet (100 mg total) by mouth daily 10/20/20 24 Active traZODone (DESYREL) 100 mg tablet Take 1 tablet (100 mg total) by mouth nightly at bedtime. 11/27/20 24 Active neomycin-hydroc ortisone rectal suppository 15-50 mg Insert 1 suppository per rectum nightly x 2 weeks for anal fissure. Repeat additional 2 weeks if persistent symptoms. 30 suppository 1 12/24/19 25 Active Active Problems No known active problems Encounters Date Type Department Care Team Description 12/24/2024 2:00 PM CHIEF NURSE Office Visit [facility] Surgery [facility] Medical Office Building [address] [place] [address] Shari Bird PA Anal fissure (Primary Dx); Rectocele; Abdominal pain; Constipation, unspecified constipation type from Last 3 Months Surgical History Surgery Date Site/Laterality Comments GALLBLADDER SURGERY 11/28/2001 - 11/27/2002 N/A APPENDECTOMY 11/28/2016 - 11/27/2017 N/A COLONOSCOPY 11/28/2016 - 11/27/2017 N/A Medical History Medical History Date Comments HTN (hypertension) Diabetes (HCC) Anxiety and depression Social History Tobacco Use Types Packs/Day Years Used Date Smoking Tobacco: Never Tobacco Cessation:Counseling Given: Not Answered Comments No Sex and Gender Information Value Date Recorded Sex Assigned at Not on file Legal Sex Female 1:07 AM CHIEF NURSE Gender Identity Not on file Sexual Orientation Not on file Obstetrics History Last Filed Vital Signs Vital Sign Reading Time Taken Comments Blood Pressure 139/90 12/24/2024 1:37 PM CHIEF NURSE Pulse 60 12/24/2024 1:37 PM CHIEF NURSE Temperature 36.8 C (98.2 F) 12/24/2024 1:37 PM CHIEF NURSE Respiratory Rate - - Oxygen Saturation 98% 12/24/2024 1:37 PM CHIEF NURSE Inhaled Oxygen Concentration - - Weight 75.3 kg (166 lb) 12/24/2024 1:37 PM CHIEF NURSE Height 157.5 cm (5' 2 ) 12/24/2024 1:37 PM CHIEF NURSE Body Mass Index 30.36 12/24/2024 1:37 PM CHIEF NURSE Plan of Treatment Health Maintenance Due Date Last Done Comments Breast Cancer Screening-Mammogram 1960 Cervical Cancer Screening 1960 Colon Cancer Screening-Colonoscopy 1960 Depression Screening 1960 Hepatitis C Screening 1960 Hepatitis B Screening 1978 Regular Well Visit/Exam 18-64 1978 Zoster Vaccine (1 of 2) 2010 DTaP/Tdap/Td Vaccine (2 - Td or Tdap) 09/05/2029 09/05/2019 Pneumococcal vaccine <65 Aged Out 09/15/2023 No longer eligible based on patient's age to complete this topic Covid-19 Vaccine Completed 09/23/2024, 03/2023, 08/23/2022, Additional history exists Influenza Vaccine Completed 09/23/2024, , 08/23/2022, Additional history exists Insurance [facility] [address] [employer] [employer] [place] [id number] Care Teams Pill Machine Operator Relationship Specialty Start Date End Date Jovanny Higgins MD [address] [place] [address] [address] PCP - General Family Medicine 10/03/24 Shari Bird PA [address] [place] [id number] [place] [address] Physician Dirt Bike Mechanic Colon and Rectal Surgery 12/25/24
--- OUTSIDE RECORDS SUMMARY | 2025-01-10 08:22 | XMS_ITS | Referral Summary ---
Author Organization [address] Address [address] [place] [id number] Care Team Providers Care Spacecraft Systems Engineer Name Role Phone Jovanny Higgins MD Primary Care Provider [phone] Shari Bird Unavailable [phone] Encounters Date Type Department Care Team Description 12/24/2024 2:00 PM BRINE ROOM LABORER Office Visit [facility] Surgery [address] [place] [address] Medical Office Building [address] [place] [address] Shari Bird PA Anal fissure (Primary Dx); Rectocele; Abdominal pain; Constipation, unspecified constipation type from Last 3 Months Allergies No known active allergies Medications atorvastatin (LIPITOR) 10 mg tablet Take 1 tablet (10 mg total) by mouth daily 11/27/20 24 Active Dexcom G7 Resource Management Specialist misc as directed 10/09/20 24 Active Dexcom [...] Active Active Problems No known active problems Social History Tobacco Use Types Packs/Day Years Used Date Smoking Tobacco: Never Tobacco Cessation:Counseling Given: Not Answered Comments No Sex and Gender Information Value Date Recorded Sex Assigned at Not on file Legal Sex Female 1:07 AM BRINE ROOM LABORER Gender Identity Not on file Sexual Orientation Not on file Last Filed Vital Signs Vital Sign Reading Time Taken Comments Blood Pressure 139/90 12/24/2024 1:37 PM BRINE ROOM LABORER Pulse 60 12/24/2024 1:37 PM BRINE ROOM LABORER Temperature 36.8 C (98.2 F) 12/24/2024 1:37 PM BRINE ROOM LABORER Respiratory Rate - - Oxygen Saturation 98% 12/24/2024 1:37 PM BRINE ROOM LABORER Inhaled Oxygen Concentration - - Weight 75.3 kg (166 lb) 12/24/2024 1:37 PM BRINE ROOM LABORER Height 157.5 cm (5' 2 ) 12/24/2024 1:37 PM BRINE ROOM LABORER Body Mass Index 30.36 12/24/2024 1:37 PM BRINE ROOM LABORER Plan of Treatment Not on file Insurance [facility] Care Teams Spacecraft Systems Engineer Relationship Specialty Start Date End Date Jovanny Higgins MD [address] [place] [address] [address] PCP - General Family Medicine 10/03/24 Shari Bird PA [address] [place] [phone] [place] [address] Physician Type Copy Examiner Colon and Rectal Surgery 12/25/24
[2025-01-10 08:33] VITALS: BP 134/79; PULSE 64; RESP 16; TEMP 36.6; O2SAT 100; BMI 30.6
--- NOTE | 2025-01-10 08:41 | WPDANESEPPF ---
Anes - Initial Pre Proc Eval Procedure: Operation Date: 01/10/25 10:00 Proposed Procedures p A-1 Sigifredo Release Right Middle Finger - Yaneth Wilson MD Date/Time: 01/10/25 08:41 Surgeon: Yaneth Wilson MD Pre Op Diagnosis: Right Middle Trigger Finger Patient Data Age: 64 Gender: F Height: 1.57 m Weight: 75.9 kg Last Vital Signs Temp 36.6 C 01/10/25 08:33 Pulse 64 01/10/25 08:33 Resp 16 01/10/25 08:33 BP 134/79 01/10/25 08:33 Pulse Ox 100 01/10/25 08:33 O2 Del Method Room Air 01/10/25 08:33 Allergies Allergy/AdvReac Type Severity Reaction Status Date / Time No Known Allergies Allergy Verified 01/10/25 08:24 Home Medications ?Medication ?Instructions ?Recorded ?Confirmed ?Type zinc 50 mg tablet 50 mg PO DAILY 09/02/20 01/10/25 History cholecalciferol (vitamin D3) 125 5,000 unit PO BID 10/30/20 01/10/25 History mcg (5,000 unit) tablet metformin 500 mg tablet 500 mg PO BID #180 tabs 09/04/24 01/10/25 Rx ascorbate calcium (vitamin C) 500 600 mg PO DAILY 10/03/24 01/10/25 History mg tablet biotin 800 mcg tablet 500 mcg PO DAILY 10/03/24 01/10/25 History cyanocobalamin (vitamin B-12) 500 mcg PO DAILY 10/03/24 01/10/25 History 1,000 mcg capsule pyridoxine (vitamin B6) 100 mg 100 mg PO DAILY 10/03/24 01/10/25 History tablet (Vitamin B-6) vitamin E mixed 100 unit tablet 180 mg PO DAILY 10/03/24 01/10/25 History blood-glucose meter,continuous #1 ea 10/08/24 12/24/24 Rx (Dexcom G7 Industrial Twisting Machine Operator) blood-glucose sensor (Dexcom G7 #10 ea 10/08/24 12/24/24 Rx Sensor device) sertraline 100 mg tablet See Rx Instructions .Route 10/15/24 01/10/25 Rx .COMPLEX #90 tabs clonazepam 1 mg tablet 1 mg PO QHS #90 tabs 10/31/24 01/10/25 Rx atorvastatin 10 mg tablet See Rx Instructions .Route 11/22/24 01/10/25 Rx .COMPLEX #90 tabs chlorthalidone 25 mg tablet See Rx Instructions .Route 11/22/24 01/10/25 Rx .COMPLEX #90 tabs semaglutide 7 mg tablet (Rybelsus) See Rx Instructions .Route 11/22/24 01/10/25 Rx .COMPLEX #90 tabs trazodone 100 mg tablet See Rx Instructions .Route 11/22/24 01/10/25 Rx .COMPLEX #90 tabs tramadol 50 mg tablet 50 mg PO Q6H PRN pain #12 tabs 01/10/25 Rx Patient hx anesthesia problems: post op nausea/vomiting Family hx anesthesia problems: none Results Review: All pre-operative results and documents have been reviewed as part of the pre-operative evaluation. [facility] Past Medical History Medical History Osteopenia Trigger finger of left hand 3rd finger Hallux valgus (acquired), right foot Anxiety Vision changes Adjustment disorder with anxious mood Labile hypertension Obesity Hypertension Rectocele Internal hemorrhoids with other complication Mixed hyperlipidemia Type 2 diabetes mellitus with diabetic dermatitis Depression Transient ischemic attack Eczema CRISTEL (obstructive sleep apnea) Diverticulosis of small intestine Dermatofibroma Cervical vertebral fusion Varicella (~1974) Surgical History Surgical History History of blepharoplasty History of bunionectomy History of foot surgery Rt hallux valgus correction DOS:10/28/2022 History of bladder surgery Bladder lift 2001 H/O hemorrhoidectomy 06/24/21 . Multiple hemorrhoid ligation (Transanal hemorrhoid dearterialization procedure) 2. Lateral internal sphincterotomy 3. Excision of thrombosed external hemorrhoid H/O rectal sphincterotomy H/O wrist surgery [address] Dunham Status post cervical spinal fusion [address] Patten History of tubal ligation (~1992) History of appendectomy Hx of cholecystectomy (~2001) Family History Family History Father , age 78 Heart disease Hypertension Mother Diabetes mellitus Hypertension Other Depression HLD (hyperlipidemia) Social History Social History Social History: Caffeine-coffee Smoking status: Never smoker Second hand tobacco smoke exposure: No Alcohol intake: current Drinks per week: 4 Alcohol use details: socially; selzers Substance use: never Substance use type: does not use Do You Feel Safe in your Home?: Yes Lack of Transportation: No Lack of Food: Never True Current Housing: I Have Housing Concerned About Future Housing: No Difficulty Paying Gas/Electric Bills: No Difficulty Paying for Meds: No Currently Unemployed: No Education: Master's Degree or Higher Difficulty w/ Childcare or Family Care: No Living arrangements: with family Occupation/Education: occupation 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 Informed Consent: The patient's anesthetic plan and its attendant risks and benefits were discussed with the patient/family/POA. Questions were solicited and answers provided to the satisfaction of the patient/family/POA.
[2025-01-10] MEDS: LACTATED RINGERS 1,000 ML 30 ML IV CONT (08:50)
[2025-01-10 08:53] LABS: Glucose Point of Care 154 mg/dl (65-105)
[2025-01-10] MEDS: ceFAZolin SODIUM 2 GM/20 ML SW SYRINGE IV PUSH (09:23)
[2025-01-10] MEDS: BUPivacaine HCL 0.5% PF 30 ML VIAL INFILTRATE (09:30)
[2025-01-10 09:40] VITALS: BP 126/73; PULSE 60; RESP 16; O2SAT 97
--- NOTE | 2025-01-10 09:48 | WPDANESPN ---
Anes - Prog Note Post-Op Date/Time: 01/10/25 09:48 Cardiovascular status: normal Respiratory status: normal Airway patency: baseline Mental status: baseline Post-Op hydration status: normal Vital Signs: Last Vital Signs Temp 36.6 C 01/10/25 08:33 Pulse 64 01/10/25 08:33 Resp 16 01/10/25 08:33 BP 134/79 01/10/25 08:33 Pulse Ox 100 01/10/25 08:33 O2 Del Method Room Air 01/10/25 08:33 Pain Score (VAS): 0 01/10/25 08:48 POC Capillary Glucose 154 H Patient Feedback: Patient satisfied with anesthetic care.
[2025-01-10 10:10] VITALS: BP 150/89; PULSE 60; RESP 16; O2SAT 99
== END 2025-01-10 10:22 ==
LOC: ASC 08:16
PROVIDERS: PCP Family Medicine; Visit Provider Plastic Surgery
PROC: (CPT 26055; principal; 2025-01-10 10:00)
DX: M65.331 Trigger finger, right middle finger (principal)
CPT/HCPCS: 26055

== ENCOUNTER 2025-02-04 11:04 | Outpatient (CLI) | payer OTHER, SELFPAY ==
--- NOTE | ~2025-02-04 | MM_ITS ---
EXAMINATION: MM screening donna BI w mike HISTORY: Screening mammogram, family history of breast cancer in her mother. TECHNIQUE: Craniocaudal and mediolateral oblique 3-D tomosynthesis images were obtained and synthetic 2-D images were generated. CAD analysis was submitted and interpreted. COMPARISON: 06/14/2023, 02/10/2022, 07/02/2020, a 17/01/2018 BREAST PARENCHYMAL COMPOSITION:Not Dense. There are scattered areas of fibroglandular density. FINDINGS: No suspicious mass, calcification, or architectural distortion are identified in either emmett ast to suggest malignancy. There has been no suspicious interval change. IMPRESSION: No mammographic evidence of malignancy. Recommend routine screening mammography in one year. BI-RADS Category 1: Negative Reviewed, dictated and finalized at location .
--- OUTSIDE RECORDS SUMMARY | 2025-02-04 13:18 | XMS_ITS | Referral Summary ---
Author Organization [address] Address [address] [place] [id number] Care Team Providers Care Dispensing Audiologist Name Role Phone Jovanny Higgins MD Primary Care Provider [phone] Shari Bird Unavailable [phone] Encounters Date Type Department Care Team Description 01/21/2025 Orders Only [facility] [address] [place] [address] Medical Office Building [address] [place] [phone] Shari Bird PA Lesion of liver (Primary Dx) 01/18/2025 Results Follow-Up [facility] [address] [place] [address] Medical Office Building [address] [place] [phone] Shari Bird PA 01/15/2025 8:05 AM ANTENNA MACHINE OPERATOR - 01/15/2025 11:59 PM ANTENNA MACHINE OPERATOR Hospital Encounter [facility] Medical Office Building [address] [address] Abdominal pain; Constipation, unspecified constipation type Discharge Disposition: Discharge to home or self care 12/24/2024 2:00 PM ANTENNA MACHINE OPERATOR Office Visit [facility] [address] [place] [address] Medical Office Building [address] [place] [phone] Shari Bird PA Anal fissure (Primary Dx); Rectocele; Abdominal pain; Constipation, unspecified constipation type from Last 3 Months Allergies No known active allergies Medications atorvastatin (LIPITOR) 10 mg tablet Take 1 tablet (10 mg total) by mouth daily 11/27/20 Active Dexcom G7 Industry Operations Investigator misc as directed 10/09/20 Active Dexcom G7 Sensor device as directed 10/08/20 Active chlorthalidone (HYGROTON) 25 mg tablet Take 1 tablet (25 mg total) by mouth daily 11/27/20 Active clonazePAM (KlonoPIN) 1 mg tablet Take 1 tablet (1 mg total) by mouth nightly 10/31/20 24 Active metFORMIN (GLUCOPHAGE) 500 mg tablet Take 1 tablet (500 mg total) by mouth 2 (two) times a day 11/15/20 Active Rybelsus 7 mg tablet Take 1 tablet (7 mg total) by mouth daily 11/27/20 24 Active sertraline (ZOLOFT) 100 mg tablet Take 1 tablet (100 mg total) by mouth daily 10/20/20 24 Active traZODone (DESYREL) 100 mg tablet Take 1 tablet (100 mg total) by mouth nightly at bedtime. 11/27/20 Active neomycin-hydroc ortisone rectal suppository 15-50 mg Insert 1 suppository per rectum nightly x 2 weeks for anal fissure. Repeat additional 2 weeks if persistent symptoms. 30 suppository 1 12/24/19 Active Active Problems No known active problems Social History Tobacco Use Types Packs/Day Years Used Date Smoking Tobacco: Never Tobacco Cessation:Counseling Given: Not Answered Comments No Sex and Gender Information Value Date Recorded Sex Assigned at Not on file Legal Sex Female 1:07 AM ANTENNA MACHINE OPERATOR Gender Identity Not on file Sexual Orientation Not on file Last Filed Vital Signs Vital Sign Reading Time Taken Comments Blood Pressure 139/90 12/24/2024 1:37 PM ANTENNA MACHINE OPERATOR Pulse 60 12/24/2024 1:37 PM ANTENNA MACHINE OPERATOR Temperature 36.8 C (98.2 F) 12/24/2024 1:37 PM ANTENNA MACHINE OPERATOR Respiratory Rate - - Oxygen Saturation 98% 12/24/2024 1:37 PM ANTENNA MACHINE OPERATOR Inhaled Oxygen Concentration - - Weight 75.3 kg (166 lb) 12/24/2024 1:37 PM ANTENNA MACHINE OPERATOR Height 157.5 cm (5' 2 ) 12/24/2024 1:37 PM ANTENNA MACHINE OPERATOR Body Mass Index 30.36 12/24/2024 1:37 PM ANTENNA MACHINE OPERATOR Plan of Treatment Not on file Procedures Procedure Name Priority Date/Time Associated Diagnosis Comments CT ABDOMEN PELVIS W CONTRAST Schedule Routine, Read Routine (OP Routine) 01/15/2025 8:20 AM ANTENNA MACHINE OPERATOR Abdominal pain Constipation, unspecified constipation type POCT CREATININE FOR CONTRAST EVALUATION Routine 01/15/2025 8:18 AM ANTENNA MACHINE OPERATOR from Last 3 Months Results * CT Abdomen Pelvis W Contrast (01/15/2025 8:20 AM ANTENNA MACHINE OPERATOR) Anatomical Region Laterality Modality Body N/A Computed Tomogra phy 01/17/2025 9:09 PM ANTENNA MACHINE OPERATOR Narrative 01/17/2025 9:16 PM ANTENNA MACHINE OPERATOR EXAM DESCRIPTION: CT ABDOMEN PELVIS W CONTRAST REASON FOR STUDY: abdominal pain, change in bowel habits, constipation, General abdomen pain and constipation for 3 years. Hx of appy, anderson. TECHNIQUE: CT scan of the abdomen and pelvis performed with intravenous and without oral contrast using helical scanning technique with dynamic intravenous contrast injection. Reconstructed coronal and sagittal MPR images reviewed. All images stored on PACS. Automated exposure control was used as a dose optimization technique for this examination. CONTRAST TYPE/DOSE: 100mL of IOVERSOL 350 MG IODINE/ML INTRAVENOUS SYRINGE injected via intravenous COMPARISON: None FINDINGS: LOWER CHEST: No significant pulmonary abnormalities. No effusion. LIVER: There are a few small simple cysts in the dome of the liver and there are multiple subcentimeter low-attenuation lesions which are too small to be characterized. GALLBLADDER: Surgically absent BILE DUCTS: No intrahepatic or extrahepatic ductal dilatation. SPLEEN: Normal size. No focal lesions. PANCREAS: No identified cystic or solid masses. No significant calcifications. No adjacent inflammation or peripancreatic fluid collections. Pancreatic duct not dilated. ADRENALS: Normal. KIDNEYS/URINARY TRACT: No identified significant cystic or solid masses. No visualized stones. No hydronephrosis or hydroureter. Symmetric enhancement. There is mild circumferential wall thickening of the urinary bladder. Recommend correlation with urinalysis for cystitis. GI: There is a small hiatal hernia. Stomach is decompressed. No dilated or thick-walled loops of bowel appreciated. There are changes of appendix. There is colonic diverticulosis without definite evidence of diverticulitis. PERITONEUM: No ascites or free air. RETROPERITONEUM: No mass or adenopathy. REPRODUCTIVE: Uterus is present. There is a small calcification in the fundus, likely a calcified uterine fibroid. VASCULATURE: No abdominal aortic aneurysm. MUSCULOSKELETAL: There are no suspicious osseous lesion. There are degenerative changes in the lower lumbar spine, particularly at L3-4 and L4-5. OTHER: There is a tiny fat containing umbilical hernia. IMPRESSION: 1. Mild circumferential wall thickening of the urinary bladder. Recommend correlation with urinalysis for cystitis. 2. Colonic diverticulosis without definite evidence of diverticulitis. 3. Small hiatal hernia. THIS IS AN ELECTRONICALLY VERIFIED FINAL REPORT 01/17/2025 9:16 PM - Electronically signed by Ignacio Peters M.D. AM: AM Report ID: [id number] Reading Location: [place] [address] Procedure Note Ignacio Peters MD - 01/17/2025 EXAM DESCRIPTION: CT ABDOMEN PELVIS W CONTRAST REASON FOR STUDY: abdominal pain, change in bowel habits, constipation, General abdomen pain and constipation for 3 years. Hx of appy, anderson. TECHNIQUE: CT scan of the abdomen and pelvis performed with intravenousand without oral contrast using helical scanning technique with dynamic intravenous contrast injection. Reconstructed coronal and sagittal MPRimages reviewed. All images stored on PACS. Automated exposure control was usedas a dose optimization technique for this examination. CONTRAST TYPE/DOSE: 100mL of IOVERSOL 350 MG IODINE/ML INTRAVENOUSSYRINGE injected via intravenous COMPARISON: None FINDINGS: LOWER CHEST: No significant pulmonary abnormalities. Noeffusion. LIVER: There are a few small simple cysts in the dome of the liver andthere are multiple subcentimeter low-attenuation lesions which are too small caesar characterized. GALLBLADDER: Surgically absent BILE DUCTS: No intrahepatic or extrahepatic ductal dilatation. SPLEEN: Normal size. No focal lesions. PANCREAS: No identified cystic or solid masses. No significant calcifications. No adjacent inflammation or peripancreatic fluidcollections. Pancreatic duct not dilated. ADRENALS: Normal. KIDNEYS/URINARY TRACT: No identified significant cystic or solid masses.No visualized stones. No hydronephrosis or hydroureter. Symmetricenhancement. There is mild circumferential wall thickening of the urinary bladder. Recommend correlation with urinalysis for cystitis. GI: There is a small hiatal hernia. Stomach is decompressed. Nodilated or thick-walled loops of bowel appreciated. There are changes of appendix. There is colonic diverticulosis without definite evidence ofdiverticulitis. PERITONEUM: No ascites or free air. RETROPERITONEUM: No mass or adenopathy. REPRODUCTIVE: Uterus is present. There is a small calcification in the fundus, likely a calcified uterine fibroid. VASCULATURE: No abdominal aortic aneurysm. MUSCULOSKELETAL: There are no suspicious osseous lesion. There are degenerative changes in the lower lumbar spine, particularly at L3-4 andL4-5. OTHER: There is a tiny fat containing umbilical hernia. IMPRESSION: 1. Mild circumferential wall thickening of the urinarybladder. Recommend correlation with urinalysis for cystitis. 2. Colonic diverticulosis without definite evidence of diverticulitis. 3. Small hiatal hernia. THIS IS AN ELECTRONICALLY VERIFIED FINAL REPORT 01/17/2025 9:16 PM - Electronically signed by Ignacio Peters M.D. AM: AM Report ID: [id number] Reading Location: [place] [address] [address] PROCEDURES Final Re sult * POCT creatinine for contrast evaluation (01/15/2025 8:18 AM ANTENNA MACHINE OPERATOR) Creatinine POC 0.80 0.60 - 1.10 mg/dL Comment:Testing performed by : [facility], [address] [place] [address]., [id number] Blood 01/15/2025 8:18 AM ANTENNA MACHINE OPERATOR 01/15/2025 8:18 AM ANTENNA MACHINE OPERATOR us Jovanny Higgins MD POINT OF CARE TEST ORDERA BLES Final Result [facility] [address] [facility] Department [place] [address] from Last 3 Months Insurance [facility] Care Teams Dispensing Audiologist Relationship Specialty Start Date End Date Jovanny Higgins MD [address] [place] [address] [place] [address] PCP - General Family Medicine 10/03/24 Shari Bird PA [address] [place] [phone] [place] [address] Physician Enamel Finisher Colon and Rectal Surgery 12/25/24
--- OUTSIDE RECORDS SUMMARY | 2025-02-04 13:18 | XMS_ITS | Clinical Summary ---
Author Organization [facility] Address [address] [place] [address] Care Team Providers Care Sr Solutions Consultant Name Role Phone Unavailable Primary Care Provider Unavailabl e Social History Tobacco Use Types Packs/Day Years Used Date Smoking Tobacco: Never Assessed Comments Unknown Sex and Gender Information Value Date Recorded Sex Assigned at Not on file Legal Sex Female 11:49 AM MICROWAVE RADIO TECHNICIAN Gender Identity Not on file Sexual Orientation [...]
--- OUTSIDE RECORDS SUMMARY | 2025-02-04 13:18 | XMS_ITS | Encounter Summary ---
Author Organization [facility] Address [address] [facility] [address] [place] [address] Phone Care Team Providers Care Real Estate Assistant Name Role Phone Jovanny Higgins MD Primary Care Provider [phone] Shari Bird Unavailable [phone] Encounter Details Date Type Department Care Team (Late st Contact Info) Description 01/18/2025 Results Follow-Up [facility] [address] [place] [address] Medical Office Building 4 [address] [place] [address] Shari Bird PA [address] [place] [phone] [place] [address] Social History Tobacco Use Types Packs/Day Years Used Date Smoking Tobacco: Never Comments No Sex and Gender Information Value Date Recorded Sex Assigned at Not on file Legal Sex Female 1:07 AM FORCE 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 [address] PCP - General Family Medicine 10/03/24 Shari Bird PA [address] [place] [phone] [place] [address] Physician Roll Forming Machine Set Up Mechanic Colon and Rectal Surgery 12/25/24 documented as of this encounter
--- OUTSIDE RECORDS SUMMARY | 2025-02-04 13:18 | XMS_ITS | Clinical Summary ---
Author Organization [address] Address [address] [place] [phone] Care Team Providers Care Digital Forensic Examiner Name Role Phone Jovanny Higgins MD Primary Care Provider [phone] Shari Bird Unavailable [phone] Allergies No known active allergies Medications atorvastatin (LIPITOR) 10 mg tablet Take 1 tablet (10 mg total) by mouth daily 11/27/20 24 Active Dexcom G7 Fire Hazard Inspector misc as directed 10/09/20 24 Active Dexcom [...] Department Care Team Description 01/21/2025 Orders Only [facility] [address] [place] [address] Medical Office Building 4 [address] [place] [address] Shrai Bird PA Lesion of liver (Primary Dx) 01/18/2025 Results Follow-Up [facility] [address] [place] [address] Medical Office Building 4 [address] [place] [address] Shari Bird PA 01/15/2025 8:05 AM INSULATION BATTING MACHINE OPERATOR - 01/15/2025 11:59 PM INSULATION BATTING MACHINE OPERATOR Hospital Encounter [facility] Medical Office Building [address] [address] Abdominal pain; Constipation, unspecified constipation type Discharge Disposition: Discharge to home or self care 12/24/2024 2:00 PM INSULATION BATTING MACHINE OPERATOR Office Visit [facility] [address] [place] [address] Medical Office Building 4 [address] [place] [address] Shari Bird PA Anal fissure (Primary Dx); [...] on file Legal Sex Female 1:07 AM INSULATION BATTING MACHINE OPERATOR Gender Identity Not on file Sexual Orientation Not on file Obstetrics History Last Filed Vital Signs Vital Sign Reading Time Taken Comments Blood Pressure 139/90 12/24/2024 1:37 PM INSULATION BATTING MACHINE OPERATOR Pulse 60 12/24/2024 1:37 PM INSULATION BATTING MACHINE OPERATOR Temperature 36.8 C (98.2 F) 12/24/2024 1:37 PM INSULATION BATTING MACHINE OPERATOR Respiratory Rate - - Oxygen Saturation 98% 12/24/2024 1:37 PM INSULATION BATTING MACHINE OPERATOR Inhaled Oxygen Concentration - - Weight 75.3 kg (166 lb) 12/24/2024 1:37 PM INSULATION BATTING MACHINE OPERATOR Height 157.5 cm (5' 2 ) 12/24/2024 1:37 PM INSULATION BATTING MACHINE OPERATOR Body Mass Index 30.36 12/24/2024 1:37 PM INSULATION BATTING MACHINE OPERATOR Plan of Treatment Health Maintenance Due Date [...] Completed 09/23/2024, , 08/23/2022, Additional history exists Procedures Procedure Name Priority Date/Time Associated Diagnosis Comments CT ABDOMEN PELVIS W CONTRAST Schedule Routine, Read Routine (OP Routine) 01/15/2025 8:20 AM INSULATION BATTING MACHINE OPERATOR Abdominal pain Constipation, unspecified constipation type POCT CREATININE FOR CONTRAST EVALUATION Routine 01/15/2025 8:18 AM INSULATION BATTING MACHINE OPERATOR from Last 3 Months Results * CT Abdomen Pelvis W Contrast (01/15/2025 8:20 AM INSULATION BATTING MACHINE OPERATOR) Anatomical Region Laterality Modality Body N/A Computed Tomogra phy 01/17/2025 9:09 PM INSULATION BATTING MACHINE OPERATOR Narrative 01/17/2025 9:16 PM INSULATION BATTING MACHINE OPERATOR EXAM DESCRIPTION: CT ABDOMEN PELVIS [...] Ignacio Peters M.D. AM: AM Report ID: [id number] Reading Location: [place] [address] Procedure Note Ignacio Peters MD - 01/17/2025 [...] Ignacio Peters M.D. AM: AM Report ID: [id number] Reading Location: [id number] us Shari CHEN IMG CT PROCEDURES Final Re sult * POCT creatinine for contrast evaluation (01/15/2025 8:18 AM INSULATION BATTING MACHINE OPERATOR) Creatinine POC 0.80 0.60 - 1.10 mg/dL Comment:Testing performed by : [facility], [address] [place] [address]., [address] Blood 01/15/2025 8:18 AM INSULATION BATTING MACHINE OPERATOR 01/15/2025 8:18 AM INSULATION BATTING MACHINE OPERATOR us Jovanny Higgins MD POINT OF CARE TEST ORDERA BLES Final Result Performing Organization Address City/State/[facility] Phone Number [address] Department [place] [address] from Last 3 Months Insurance [facility] Care Teams Digital Forensic Examiner Relationship Specialty Start Date End Date Jovanny Higgins MD [facility] [address] [address] PCP - General Family Medicine 10/03/24 Shari Bird PA [address] [place] [phone] [place] [address] Physician Inspector Air Carrier Colon and Rectal Surgery 12/25/24
== END 2025-02-04 11:05 | disposition home or self-care (01) ==
LOC: CHSIMG 11:05
PROVIDERS: PCP Family Medicine; Visit Provider Student in an Organized Health Care Education/Training Program
DX: Z12.31 Encounter for screening mammogram for malignant neoplasm of breast (principal)
CPT/HCPCS: 77063; 77067

== ENCOUNTER 2025-05-27 10:00 | Outpatient (RCR) | payer MEDICARE, SELFPAY ==
--- NOTE | 2025-04-16 15:13 | OPREHPOC ---
Outpatient Therapy Plan of Care This is a Multidisciplinary Plan of Care that may contain components documented by all disciplines (PT, OT, and ST.) PT Problem 1 PT Problem #1 Knowledge Deficit PT Goal 1 Goal / Goal Update 1. Patient will perform independent HEP 2. Patient will verbalize urge suppression strategies Target Visit 3 PT Problem 2 PT Problem #2 Pain PT Goal 1 Goal / Goal Update 1. Pain with BM no higher than 2/10 Target Visit 5 PT Problem 3 PT Problem #3 Impaired Functional ADLs PT Goal 1 Goal / Goal Update 1. BM at least 5 days out of 7 2. Patient will report no urge incontinence for 2 weeks 3. Patient will report no symptoms of pelvic heaviness limiting activities for 2 weeks Target Visit 5 PT Problem 4 PT Problem #4 Impaired Strength PT Goal 1 Goal / Goal Update 1. Improve pelvic floor strength to 4/5 2. Improve pelvic floor endurance to 10 seconds Target Visit 5
--- NOTE | 2025-04-16 15:13 | PTOPEVAL1 ---
Assessment and note entered by Bridgette Haque DPT Evaluation Information Assessment Status Evaluation Diagnosis m62.89 ICD-10 Condition Codes (PT) Weakness R53.1,Pelvic and perineal pain R10.2,Urge incontinence N39.41 Subjective Information Pt reports she had hemorrhoid surgery a couple years ago and is still having issues. Has been having constipation issues for 2-3 years and it is worsening. States she has an anal fissure, has been addressed with cream and suppositories. States no one has mentioned surgery for the fissure so far. Pain from fissure 6/10 highest and 0/10 lowest. Pain increases after a BM. BM is still irregular and feels an incomplete sense of emptying. Lately BM every 3-5 days. Consistency and need to strain varies. Was most recently referred to Dr. Flowers and states another MD told she has a pelvic organ prolapse. Voids 2-3 times at night and 5-6 times a day. Urge incontinence almost daily. Does not get stress incontinence. Denies pain with urination. Can hold urge to void 10-15 minutes. Reports a sense of pelvic heaviness that contributes to a need to sit down frequently and states that is a new sensation. Does have some pelvic pain with intercourse and pelvic exam. Pt has been 3 times, all 3 vaginal deliveries. Tearing with her second. Will be getting a bladder study next week. Return to Dr. Flowers is not scheduled currently. Goal for therapy: relief of the heavy feeling Diet: drinks water with lemonade powder in it, 2 cups of coffee in the morning. Alcohol socially. Eats breakfast later in the morning and 3-4 will eat dinner. Feels she is often not hungry and has to force herself to eat. Not snacking on a daily basis. Unsure fiber intake but is using sugar free fiber gummies. Powdered laxative in coffee. Reported Pain Level Pain Score 2: Self Report Assessment PT Clinical Summary The patient is presenting to skilled therapy with a long history of constipation and pelvic pain and reports urge incontinence. She also reports symptoms of and demonstrates signs of pelvic organ prolapse. She presents with decreased pelvic floor muscle strength and endurance, as well as decreased hip and abdominal strength, which are contributing to the above symptoms. She will highly benefit from skilled therapy to address impairments in order to reduce pain, symptoms of prolapse, and incontinence and to restore function . Plan of Care Interventions Electrical Stimulation,Hot Pack/Cold Pack,Manual Therapy,Neuro Re-education,Patient/Caregiver Education,Therapeutic Activities,Therapeutic Exercise PT Services Indicated Yes Treatment Frequency and 5 visits total in the next 2 months (per patient Duration schedule) These treatments will address the objective and functional deficits as defined above. The patient will be advanced safely and appropriately in order for the patient to progress towards his/her prior level of function. Additional exercises will be introduced and as well as a comprehensive home exercise program upon discharge, if needed, ?to ensure carryover of functional gains achieved in the clinic. This treatment plan has been reviewed and agreement upon by the patient.
--- NOTE | 2025-05-27 10:36 | OPREHPOC ---
Outpatient Therapy Plan of Care This is a Multidisciplinary Plan of Care that may contain components documented by all disciplines (PT, OT, and ST.) PT Problem 1 PT Problem #1 Knowledge Deficit PT Goal 1 Goal / Goal Update 1. Patient will perform independent HEP 2. Patient will verbalize urge suppression strategies Target Visit 3 Progress Met PT Problem 2 PT Problem #2 Pain PT Goal 1 Goal / Goal Update 1. Pain with BM no higher than 2/10 Target Visit 5 Progress Met PT Problem 3 PT Problem #3 Impaired Functional ADLs PT Goal 1 Goal / Goal Update 1. BM at least 5 days out of 7 2. Patient will report no urge incontinence for 2 weeks 3. Patient will report no symptoms of pelvic heaviness limiting activities for 2 weeks update 05/27/25 1. met 2. 2 times per week 3. met Target Visit 5 Progress Partially Met PT Problem 4 PT Problem #4 Impaired Strength PT Goal 1 Goal / Goal Update 1. Improve pelvic floor strength to 4/5 2. Improve pelvic floor endurance to 10 seconds new goal 05/27/25 3. improve pelvic floor strength to 5/10 Target Visit 5 Progress Met
--- NOTE | 2025-05-27 10:36 | PTOPPROG ---
Assessment and note entered by Bridgette Haque DPT Evaluation Information Assessment Status Progress Diagnosis m62.89 ICD-10 Condition Codes (PT) Weakness R53.1,Pelvic and perineal pain R10.2,Urge incontinence N39.41 Subjective Information Pt reports she is feeling some improvements with therapy. Feels stronger. Pain from fissure 2/10 and lowest 0/10. BM 6 out of the last 7 days. Notices an incomplete sense of emptying still at times. Voiding 1-2 times at night, 5-6 times a day . Urge incontinence 2 times in the last week. Sees colorectal surgeon in 2 or 3 weeks. Assessment PT Clinical Summary The patient has made good progress in therapy and reports overall decreased pelvic pain and improvements with frequency of BM. She also reports decreased nocturia and decreased urge incontinence. She demonstrates improved hip and abdominal strength, as well as improved pelvic floor strength and endurance. She will benefit from continued therapy to further address bowel and bladder symptoms and improve function while patient is also following up with surgeons to determine final plan. Plan of Care Interventions Electrical Stimulation,Hot Pack/Cold Pack,Manual Therapy,Neuro Re-education,Patient/Caregiver Education,Therapeutic Activities,Therapeutic Exercise PT Services Indicated Yes Treatment Frequency and 2 visits per month x 4 visits total Duration These treatments will address the objective and functional deficits as defined above. The patient will be advanced safely and appropriately in order for the patient to progress towards his/her prior level of function. Additional exercises will be introduced and as well as a comprehensive home exercise program upon discharge, if needed, ?to ensure carryover of functional gains achieved in the clinic. This treatment plan has been reviewed and agreement upon by the patient.
--- NOTE | 2025-07-03 10:14 | PTOPDC ---
Assessment and note entered by Bridgette Haque DPT Evaluation Information Assessment Status Discharge - Pt Not Present Diagnosis m62.89 ICD-10 Condition Codes (PT) Weakness R53.1,Pelvic and perineal pain R10.2,Urge incontinence N39.41 Subjective Information - Assessment PT Clinical Summary Patient is self discharging at this time due to a in the family and needing to handle estate matters. Plan of Care PT Services Indicated No
== END 2025-07-03 13:48 | disposition home or self-care (01) ==
LOC: ANHGOSHPT 10:00
PROVIDERS: PCP Family Medicine
DX: M62.89 Other specified disorders of muscle (principal)
CPT/HCPCS: 97112; 97140; 97162; 97530

== ENCOUNTER 2025-09-02 10:58 | Outpatient (CLI) | payer MEDICARE, SELFPAY ==
--- NOTE | ~2025-09-02 | XR_ITS ---
EXAMINATION: XR wrist RT w scaphoid, 09/02/2025 11:03 CDT HISTORY: S69.91XA - Unspecified injury of right wrist, hand and fi... COMPARISON: No comparisons available. Findings: Nondisplaced fracture of the distal radius with intra-articular extension No significant degenerative changes. Soft tissues unremarkable. Impression: Distal radial fracture Reviewed, dictated and finalized at location P. Impression: Distal radial fracture
== END 2025-09-02 10:59 | disposition home or self-care (01) ==
PROVIDERS: PCP Family Medicine; Visit Provider Student in an Organized Health Care Education/Training Program
DX: S52.501A Unspecified fracture of the lower end of right radius, initial encounter for closed fracture (principal); X58.XXXA Exposure to other specified factors, initial encounter
CPT/HCPCS: 73110

== ENCOUNTER 2025-09-16 08:47 | Outpatient (CLI) | payer MEDICARE, SELFPAY ==
--- NOTE | ~2025-09-16 | XR_ITS ---
EXAMINATION: XR wrist RT w scaphoid, 09/16/2025 8:51 CDT HISTORY: S52.501A - Unspecified fracture of the lower end of right... COMPARISON: No comparisons available. Findings: Nondisplaced fracture of the distal radius. Nondisplaced fracture of the distal ulna. Nondisplaced fracture of the distal scaphoid suspected, distinction from a prominent nutrient canal dislocation limited. No significant degenerative changes. Soft tissue swelling. Impression: Fractures detailed above Reviewed, dictated and finalized at location P. Impression: Fractures detailed above
== END 2025-09-16 08:48 | disposition home or self-care (01) ==
LOC: MICIMG 08:48
PROVIDERS: PCP Family Medicine; Visit Provider Student in an Organized Health Care Education/Training Program
DX: S52.501A Unspecified fracture of the lower end of right radius, initial encounter for closed fracture (principal); X58.XXXA Exposure to other specified factors, initial encounter
CPT/HCPCS: 73110

== ENCOUNTER 2025-09-26 11:31 | Outpatient (CLI) | payer MEDICARE, SELFPAY ==
--- NOTE | ~2025-09-26 | DEXA_ITS ---
Bone Density Report Name: ANI MARTIN Age: 65 Sex: Female Ethnicity: White Date of : 1960 Indication: postmenopausal; screening for osteoporosis; prior fracture; Referring Provider: JAIME RODRIGUEZ Study: Bone densitometry was performed. Exam Date: September 26, 2025 Accession number: [id number] Bone Density: Region BMD T-score Z-score Classification AP Spine(L1, L3, L4) 1.129 0.7 2.5 Normal Femoral Neck (Left) 0.687 -1.5 0.1 Osteopenia Total Hip (Left) 0.893 -0.4 0.8 Normal Femoral Neck (Right) 0.633 -1.9 -0.4 Osteopenia Total Hip (Right) 0.857 -0.7 0.5 Normal Femoral Neck Mean 0.660 -1.7 -0.2 Osteopenia Total Hip Mean 0.875 -0.5 0.7 Normal World Health Organization criteria for BMD impression classify patients as: Normal (T-score at or above -1.0), Osteopenia (T-score between -1.0 and -2.5), or Osteoporosis (T-score at or below -2.5). 10-year Fracture Risk(1): Major Osteoporotic Fracture 17% Hip Fracture 2.4% Reported Risk Factors: [place] (), Neck BMD=0.633, BMI=29.2, previous fracture (1) FRAX(R) Version 3.08. Fracture probability calculated for an untreated patient. Fracture probability may be lower if the patient has received treatment. Clinical Information Provided by Patient: Has had a low trauma fracture Has used the following medications: Calcium Patient maximum height was 63 Menopause Age: 50 No regular weight bearing exercise Onset of menses at age 13 Number of children 3 Impression: The patient has low bone mass, based on the Right Femoral Neck T-score. The patient has risk factors, including: previous fracture. Discussion: BONE DENSITY IS LOW AT ONE OR MORE SKELETAL SITES. This patient's lowest T-score is low at one or more skeletal sites. It meets the World Health Organization's (WHO) criteria for ?low bone mass? (T-score between -1.0 and -2.5). The patient's 10-year risk of fracture as calculated by FRAX is less than the threshold where pharmacological therapy is recommended by the National Osteoporosis Foundation (NOF). However, all treatment decisions require clinical judgment and consideration of individual patient factors, including patient preferences, comorbidities, previous drug use, risk factors not captured in the FRAX model (e.g., frailty, falls, vitamin D deficiency, increased bone turnover, interval significant decline in bone density) and possible under or overestimation of fracture risk by FRAX. The patient should follow a healthful lifestyle (good nutrition with adequate calcium and vitamin D, and appropriate weight-bearing exercise). Follow-Up: Consider repeating this study in 2 to 3 years to reassess this patient's status, or sooner if there is some new clinical indication. Reported by: MIRELLA on 09/26/2025 11:53:00 AM. Reviewed, dictated and finalized at location A.
--- OUTSIDE RECORDS SUMMARY | 2025-09-26 12:43 | XMS_ITS | Clinical Summary ---
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 30 suppository 1 12/24/19 Active Additional Information Patient not taking.Reported on 08/13/2025 estradioL (Estrace) 0.01 % (0.1 mg/gram) vaginal creamIndication s:Vaginal atrophy Apply 1/4 applicator (1g) to the vagina 2-3 times per week (such as Tuesday//Tuesday) 42.5 g 3 03/22/20 Active Active Problems Problem Noted Date Diagnosed Date Urethral sphincter deficiency, intrinsic (ISD) 0 04/25/2025 Mixed stress and urge urinary incontinence 04/25 Incomplete uterovaginal prolapse 03/22/2025 Rectocele 03/22/2025 Vaginal atrophy 03/22/2025 Pelvic floor dysfunction in female 03/22/2025 Urge incontinence of urine 03/22/2025 Encounters Date Type Department Care Team Description 08/13/2025 10:45 AM CDT Office Visit [facility] Medicine Surgery [address] [place] [address] Medical Office Building [address] [address] Spring eWlsh MD Pelvic floor dysfunction in female (Primary Dx) from Last 3 Months Surgical History Surgery Date Site/Laterality Comments GALLBLADDER SURGERY 11/28/2001 - 11/27/2002 N/A APPENDECTOMY 11/28/2016 - 11/27/2017 N/A COLONOSCOPY 11/28/2016 - 11/27/2017 N/A CHOLECYSTECTOMY 1996 Medical History Medical History Date Comments HTN (hypertension) Diabetes Anxiety and depression Family History Medical History Relation Name Comments Heart disease Father Omer Diabetes Mother Ginger Relation Name Status Comments Father Omer Mother Ginger Alive Social History Tobacco Use Types Packs/Day Years Used Date Smoking Tobacco: Never AUDIT-C Answer Date Recorded Q1: How often do you have a drink containing alc ohol? Monthly or less 02/18/2025 Q2: How many drinks containi ng alcohol do you have on a typical day when you are drinking? 1 or 2 02/18/2025 Q3: How often do you have si x or more drinks on one occasion? 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 Gender Identity Not on file Sexual Orientation Not on file Obstetrics History Last Filed Vital Signs Vital Sign Reading Time Taken Comments Blood Pressure 144/86 08/13/2025 10:29 AM CDT Pulse 61 08/13/2025 10:29 AM CDT Temperature 36.8 C (98.3 F) 08/13/2025 10:29 AM CDT Respiratory Rate - - Oxygen Saturation 98% 08/13/2025 10:29 AM CDT Inhaled Oxygen Concentration - - Weight 76.3 kg (168 lb 3.2 oz) 08/13/2025 10:29 AM CDT Height 157.5 cm (5' 2) 08/13/2025 10:29 AM CDT Body Mass Index 30.76 08/13/2025 10:29 AM CDT Plan of Treatment Health Maintenance Due Date Last Done Comments Breast Cancer Screening-Mammogram 1960 Cervical Cancer Screening 1960 Colon Cancer Screening-Colonoscopy 1960 Depression Screening 1960 Fall Risk Assessment 1960 Hepatitis C Screening 1960 Osteoporosis Screening-Bone Density Scan 1960 Hepatitis B Screening 1978 Zoster Vaccine (1 of 2) 2010 Well Visit 65+ 2025 Covid-19 Vaccine (2023-2 5 season) 2025 09/23/2024, 09/01/2023, 08/23/2022, Additional history exists Influenza Vaccine (#1) 2025 , 09/01/2023, 08/23/2022, Additional history exists DTaP/Tdap/Td Vaccine (3 - Td or Tdap) 09/05/2029 09/05/2019, 10/31/2008 Pneumococcal vaccine 65+ Completed 09/15/2023, 01/[address] 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
--- OUTSIDE RECORDS SUMMARY | 2025-09-26 12:43 | XMS_ITS | Clinical Summary ---
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 Gender Identity Not on file Sexual Orientation Not on file Plan of Treatment Health Maintenance Due Date Last Done Comments Hepatitis C Virus (HCV) Screening 1960 Pap Smear 1981 Cervical Cancer Screening (CCS) 1990 HPV/Cotest 1990 Cologuard 2005 Colonoscopy 2005 Colorectal Cancer Screening 2005 Immunochemical Fecal Occult Blood 2005 Pneumococcal Immunization (50+ years) (1 of 1 - PCV) 2010 Zoster Immunization (1 of 2) 2010 Influenza Immunization (#1) 07/29/202509/28, 08/31/2020, 09/05/2019, Additional history exists SARS-COV-2 Immunization ( season) 2025 09/22/2021, 02/07/2021, 01/10/2021 Respiratory Syncytial Virus (RSV) Immunization (Adult) (1 - 1-dose 75+ series) 2035 DTaP/Tdap/Td Immunization Discontinued 09/05/2019 TdaP Immunization Completed 09/05/2019 Hepatitis B Immunization Aged Out No longer eligible based on patient's age to complete this topic Human Papillomavirus (HPV) Immunization Aged Out No longer eligible based on patient's age to complete this topic Meningococcal Immunization (ACWY) Aged Out No longer eligible based on patient's age to complete this topic Rotavirus Immunization Aged Out No lo nger eligible based on patient's age to complete this topic
== END 2025-09-26 11:32 | disposition home or self-care (01) ==
LOC: CHSIMG 11:31
PROVIDERS: PCP Family Medicine; Visit Provider Family Medicine
DX: M85.89 Other specified disorders of bone density and structure, multiple sites (principal)
CPT/HCPCS: 77080

== ENCOUNTER 2025-10-21 11:55 | Outpatient (CLI) | payer MEDICARE, SELFPAY ==
--- NOTE | ~2025-10-21 | XR_ITS ---
EXAMINATION: XR wrist RT w scaphoid DATE: 10/21/2025 12:38 INDICATION: Fracture right humerus. TECHNIQUE: 4 views of the right wrist were obtained. COMPARISON: Prior study dated 09/16/2025. FINDINGS: Diffusely osteopenic bones. Healing nondisplaced fracture distal radius in satisfactory alignment. Healing fracture of radial styloid process with fracture line extending to the articular surface of radiocarpal joint. No evidence of healing fracture of the scaphoid or distal ulna are seen. Intercarpal spaces are normal. IMPRESSION: 1. Healing fracture of distal radius and radial styloid process in satisfactory alignment compared with previous radiograph. 2. Osteopenic bones. Please correlate with DEXA densitometry. Reviewed, dictated and finalized at location T. NEUROSURGICAL
== END 2025-10-21 11:56 | disposition home or self-care (01) ==
LOC: MICIMG 11:56
PROVIDERS: PCP Family Medicine; Visit Provider Orthopaedic Surgery
DX: S52.571D Other intraarticular fracture of lower end of right radius, subsequent encounter for closed fracture with routine healing (principal); X58.XXXD Exposure to other specified factors, subsequent encounter
CPT/HCPCS: 73110